=== PATIENT | female | born 1930 | race Caucasian/White ===

== ENCOUNTER → 2018-08-31 | Outpatient (CLI) | payer MEDICARE ==
[2018-08-31 16:48] LABS: HEMOGLOBIN 12.3 g/dL (12.0-15.0); MEAN CELL HGB CONCENTRATION 31.9 g/dL (33-37); MEAN CORP VOLUME 97.2 fL (78-100); MEAN PLATELET VOLUME 9.8 fL (7.8-11.0); RED CELL DISTRIBUTION WIDTH 14.5 % (11.5-14.5); WHITE BLOOD CELL 9.4 10^3/uL (4.5-11.0)
[2018-08-31 16:55] LABS: CALCIUM 10.4 mg/dL (8.4-10.5); CARBON DIOXIDE 26.2 mmol/L (20.0-32)
== END | disposition home or self-care (01) ==
LOC: LAB 16:24
PROVIDERS: ATTEND Family Medicine
DX: N39.0 Urinary tract infection, site not specified (principal)
CPT/HCPCS: 80053; 85027

== ENCOUNTER 2018-11-22 08:15 | Inpatient (IN) | payer MEDICARE ==
[2018-11-22] VITALS (13 sets, daily range): BP systolic 98–158; BP diastolic 44–119
[~2018-11-22] VITALS: Ht 167.6 cm; Wt 79.5 kg
--- NOTE | 2018-11-22 08:15 | NUR ---
ARRIVAL PATIENT ARRIVED TO ED3 VIA GURNEY BY [facility]PLING EMS, EMS CALLED TO [facility], PATIENT STATES SHE WAS GETTING UP TO USE THE RESTROOM AT APPROX 0300, SHE WAS USING THE BEDSIDE TABLE TO WALK ACROSS THE ROOM, HER WATER FELL ON THE FLOOR AND PATIENT SLIPPED IN THE WATER LANDED ON THE FLOOR, ROTATION NOTED TO RIGHT EXTREMITIY, RAISED AREA TO THE BACK OF THE HEAD, DENIES LOC, HERE FOR XRAY AND FURTHER EVAL BY EDP.
--- NOTE | 2018-11-22 08:37 | ER.PDOC ---
General Chief Complaint: Requesting Medical Care Stated Complaint: FALL Time seen by MD: 08:33 Source: patient Exam Limitations: no limitations History of Present Illness Where: long term Severity: moderate Injuries/Pain Location: lower extremity Context: Slipped Loss of Consciousness: No Loss of Consciousness Modifying Factors: improves with movement, improves with rest Allergies: Coded Allergies: No Known Allergies (Unverified , 11/22/18) MEDS Reported Medications Gabapentin (GABAPENTIN) 300 Mg Capsule, 1 CAP PO TID, #90 CAP 3 Refills 11/22/18 Potassium Chloride (POTASSIUM CHLORIDE) 20 Meq Tab.er.prt, 1 TAB PO BID, #180 TAB 3 Refills 11/22/18 Metoprolol Tartrate 25MG (LOPRESSER 25MG) 25 Mg Tablet, 1 TAB PO BID, #180 TAB 3 Refills 11/22/18 Metformin Hcl (METFORMIN HCL) 1,000 Mg Tablet, 1 TAB PO BID, #180 TAB 1 Refill 11/22/18 Docusate Sodium (DOCUSATE SODIUM) 100 Mg Capsule, 1 CAP PO BID, #14 CAP 11/22/18 Rivaroxaban (XARELTO) 20 Mg Tablet, 1 TAB PO DAILY, #90 TAB 3 Refills 11/22/18 Vit A,C & E/Lutein/Minerals (OCUVITE TABLET) 1 Each Tablet, 1 EACH PO DAILY24, TABLET 11/22/18 Levothyroxine Sodium (LEVOTHYROXINE SODIUM) 112 Mcg Tablet, 1 TAB PO DAILY, #90 TAB 3 Refills 11/22/18 Hydrochlorothiazide (HYDROCHLOROTHIAZIDE) 25 Mg Tablet, 1 TAB PO DAILY, #90 TAB 3 Refills 11/22/18 [place]-3 Fatty Acids/Fish Oil (FISH OIL 1,000 MG CAPSULE) 1 Each Capsule, 1 EACH PO DAILY24, CAPSULE 11/22/18 Aspirin (ASPIR 81) 81 Mg Tablet.dr, 1 TAB PO DAILY, #90 TAB 3 Refills 11/22/18 Zolpidem Tartrate (AMBIEN) 5 Mg Tablet, 1 TAB PO HS, #30 TAB 11/22/18 Tramadol Hcl (TRAMADOL HCL) 50 Mg Tablet, 100 MG PO Q8, TABLET 11/22/18 Past Medical History Medical History: no pertinent history LMP (females 10-50): postmenopause Social History Smoking: non-smoker Reviewed Nursing Reviewed: Vital Signs, Abn. Noted Review of Systems All Other Systems: Reviewed and Negative Physical Exam General Appearance: No Apparent Distress, WD/WN Head: No Evidence of Injury Eyes: bilateral eye normal inspection Ears, Nose, Mouth, Throat: Hearing Grossly Normal, No Evidence of ENT Injury, No Dental Injury Neck: Non-Tender, Normal Alignment, Nexus criteria neg, Normal Inspection Cardiovascular/Respiratory: Regular Rate, Rhythm, No M/R/G, Normal Peripheral Pulses, No JVD, Normal Breath Sounds, No Respiratory Distress Gastrointestinal: Normal Bowel Sounds, No Organomegaly, No Pulsatile Mass, Non Tender, Soft Back: Normal Inspection, No CVA Tenderness, No Vertebral Tenderness Extremities: Bony-Point Tenderness, Pain With Movement, Tenderness, Unable to Bear Weight 1 - tenderness Neurologic/Psychiatric: 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 (11/22/18 08:31) Helicobacter Pylori (11/22/18 08:31) D-Dimer (11/22/18 08:31) Ekg-Routine (11/22/18 08:31) Ct Head Wo Contrast (11/22/18 08:34) Urinalysis (11/22/18 08:55) Ct Rt Lower Extremity Wo (11/22/18 09:06) Ondansetron Hcl (Zofran) (11/22/18 09:11) Morphine Sulfate (Morphine Sulfate) (11/22/18 09:14) Ondansetron Hcl (Zofran) (11/22/18 09:14) 0.9 % Sodium Chloride (Ns 1000ml) (11/22/18 09:30) 0.9 % Sodium Chloride (Ns 1000ml) (11/22/18 09:46) Urine Culture (11/22/18 10:00) Ceftriaxone Sodium (Rocephin) (11/22/18 11:00) Vital Signs Date Time Temp Pulse Resp B/P (MAP) Pulse Ox O2 Delivery O2 Flow Rate FiO2 11/22/18 09:00 97.9 92 12 143/119 (127) 92 Room Air 97.9 11/22/18 08:56 12 11/22/18 08:37 97.9 92 12 92 Room Air 97.9 11/22/18 08:36 97.9 92 12 97.9 Administered Medications Medications (Trade) Dose Ordered Sig/April Route PRN Reason Start Time Stop Time Status Last Admin Dose Admin Morphine Sulfate (Morphine Sulfate) 2 mg STAT STAT IV 11/22/18 09:14 11/22/18 09:15 DC 11/22/18 09:18 2 MG Ondansetron HCl (Zofran) 4 mg STAT STAT IV 11/22/18 09:14 11/22/18 09:15 DC 11/22/18 09:18 4 MG Sodium Chloride 1,000 ml @ 0 mls/hr Q0M ONCE IV 11/22/18 09:30 11/22/18 09:31 DC 11/22/18 09:58 1,200 MLS/HR Laboratory Tests Test 11/22/18 08:34 11/22/18 10:00 White Blood Count 14.0 10^3/uL (4.5-11.0) H Red Blood Count 4.29 10^6/uL (4.00-5.20) Hemoglobin 12.7 g/dL (12.0-15.0) Hematocrit 38.6 % (36.0-46.0) Mean Corpuscular Volume 90.0 fL (78-100) Mean Corpuscular Hemoglobin 29.6 pg (26-34) Mean Corpuscular Hemoglobin Concent 32.9 g/dL (33-37) L Red Cell Distribution Width 14.8 % (11.5-14.5) H Platelet Count 333 10^3/uL (150-400) Mean Platelet Volume 8.7 fL (7.8-11.0) Neutrophils (%) (Auto) 73.2 % (41.0-85.0) Lymphocytes (%) (Auto) 17.4 % (24.0-44.0) L Monocytes (%) (Auto) 5.8 % (5.0-12.0) Neutrophils # (Auto) 10.2 10^3/uL (1.8-7.7) H Lymphocytes # (Auto) 2.4 10^3/uL (1.0-4.8) Monocytes # (Auto) 0.8 10^3/uL (0.3-0.8) Absolute Immature Granulocyte (auto 0.05 10^3 u/L (0-2) Eosinophils % 2.9 % (0.0-5.0) Basophils % 0.3 % (0.0-0.2) H Basophils # 0.0 10^3/uL (0.0-0.1) Eosinophil Count 0.4 10^3/uL (0.0-0.2) H Prothrombin Time 10.1 SEC (9.8-11.9) Prothrombin Time INR (Non-Therap) 1.0 PTT 26.8 SEC (24.67-30.72) D-Dimer 30.85 mg/L (0.19-0.49) *H Sodium Level 138 mmol/L (132-145) Potassium Level 3.7 mmol/L (3.6-5.2) Chloride Level 96.0 mmol/L (96-109) Carbon Dioxide Level 31.1 mmol/L (20.0-32) Anion Gap 14.6 Blood Urea Nitrogen 17 mg/dL (7-18) Creatinine 0.72 mg/dL (0.59-1.40) Estimated GFR () 92.9 (>/=60) BUN/Creatinine Ratio 23.0 Glucose Level 103 mg/dL (70-110) Calcium Level 10.4 mg/dL (8.4-10.5) Total Bilirubin 0.4 mg/dL (0.2-1.0) Aspartate Amino Transferase (AST) 19 U/L (0-35) Alanine Aminotransferase (ALT) 17 U/L (12-78) Alkaline Phosphatase 76 U/L (50-136) Total Creatine Kinase 44 U/L (26-192) Troponin I < 0.02 ng/mL (0.00-0.05) Pro-B-Type Natriuretic Peptide 95 pg/mL (0-450) Total Protein 7.1 g/dL (6.4-8.2) Albumin 3.4 g/dL (3.4-5.0) Globulin 3.7 Percent Immature Gran (Cell Imm) 0.40 % (0.00-0.50) Helicobacter pylori Screen POSITIVE (NEGATIVE) Urine Collection Type VOID Urine Color YELLOW (YELLOW) Urine Appearance CLOUDY (CLEAR) H Urine Bilirubin NEGATIVE MG/DL (NEGATIVE) Urine Ketones 5 mg/dL (NEGATIVE) H Urine Specific Dequincy 1.010 (1.005-1.035) Urine pH 9 (5.0-6.0) Urine Protein NEGATIVE (NEGATIVE) Urine Urobilinogen NORMAL (NEGATIVE) Urine Nitrate POSITIVE (NEGATIVE) Urine Leukocyte Esterase 500/uL 2+ (NEGATIVE) Urine Blood 25 1+ (NEGATIVE) H Urine RBC 2-5 RBC/HPF (NONE SEEN) Urine WBC TNTC WBC/HPF (0-2) H Urine Squamous Epithelial Cells MANY #/HPF (FEW) Urine Bacteria MANY (NONE SEEN) H Urine Glucose NORMAL (NEGATIVE) Departure Time of Disposition: 11:11 Disposition: 09 ADMITTED INPATIENT Impression: Primary Impression: Fracture, hip Additional Impression: UTI (urinary tract infection) Condition: Improved Referrals: CRISTOFER CRUZ (PCP) PRIMARY CARE PROVIDER Duration or Time Spent with Pa: 2 hrs LOUIS CASAS MD November 22, 2018 08:37
[2018-11-22 08:39] LABS: BASOPHIL % 0.3 % (0.0-0.2); EOSINOPHIL # 0.4 10^3/uL (0.0-0.2); EOSINOPHIL % 2.9 % (0.0-5.0); HEMOGLOBIN 12.7 g/dL (12.0-15.0); LYMPHOCYTES # 2.4 10^3/uL (1.0-4.8); LYMPHOCYTES % 17.4 % (24.0-44.0); MEAN CELL HGB 29.6 pg (26-34); MEAN CELL HGB CONCENTRATION 32.9 g/dL (33-37); MEAN PLATELET VOLUME 8.7 fL (7.8-11.0); MONOCYTES # 0.8 10^3/uL (0.3-0.8); MONOCYTES % 5.8 % (5.0-12.0); NEUTROPHIL # 10.2 10^3/uL (1.8-7.7); NEUTROPHILS % 73.2 % (41.0-85.0); RED CELL DISTRIBUTION WIDTH 14.8 % (11.5-14.5)
--- NOTE | 2018-11-22 08:45 | NUR ---
xray XRAY TO ROOM
[2018-11-22 09:03] LABS: ALANINE AMINOTRANSFERASE(ML) 17 U/L (12-78); ALKALINE PHOSPHATASE 76 U/L (50-136); ASPARTATE AMINO TRANSFERASE 19 U/L (0-35); CALCIUM 10.4 mg/dL (8.4-10.5); CARBON DIOXIDE 31.1 mmol/L (20.0-32); GLUCOSE 103 mg/dL (70-110)
[2018-11-22] MEDS ORDERED: GABA300C10 PO (09:10)
[2018-11-22] MEDS ORDERED: LEVO112T5 PO (09:10)
[2018-11-22] MEDS ORDERED: ASPI-484 PO (09:10)
[2018-11-22] MEDS ORDERED: TRAM50TA PO (09:10)
[2018-11-22] MEDS ORDERED: RIVA20TA PO (09:10)
[2018-11-22] MEDS ORDERED: DOCU100C28 PO (09:10)
[2018-11-22] MEDS ORDERED: METO25TA4 PO (09:10)
[2018-11-22] MEDS ORDERED: HYDR25TA9 PO (09:10)
[2018-11-22] MEDS ORDERED: METF10007 PO (09:10)
[2018-11-22] MEDS ORDERED: POTA20TA14 PO (09:10)
[2018-11-22] MEDS ORDERED: VIT1TABL32 PO (09:10)
[2018-11-22] MEDS ORDERED: ZOLP5TAB PO (09:10)
[2018-11-22] MEDS ORDERED: OMEG1CAP6 PO (09:10)
[2018-11-22] MEDS ORDERED: ZOFRAN ONE (09:11)
[2018-11-22] MEDS ORDERED: MORPHINE SULFATE IV STA (09:14)
[2018-11-22] MEDS ORDERED: ZOFRAN IV STA (09:14)
--- NOTE | 2018-11-22 09:19 | NUR ---
CRITICAL LAB D-DIMER 30.2, REPORTED TO DOCTOR CASAS.
--- NOTE | 2018-11-22 09:19 | DIREP ---
PROCEDURE:XRAY FEMUR 2 VWS-RT COMPARISON:None. INDICATIONS:fall, mid thigh pain FINDINGS: BONES:No acute fracture or bone displacement. There is osteopenia in the proximal femoral shaft and intratrochanteric region. JOINTS:Right total hip arthroplasty in satisfactory alignment. The knee joint demonstrates no subluxation or dislocation. Mild narrowing and marginal osteophyte formation at the patellofemoral joint. SOFT TISSUES:Normal. OTHER:Partially visualized distal left femoral hardware and left knee arthroplasty. Surgical clips in the medial aspect of the right thigh. CONCLUSION: 1. No evidence of acute bony injury to the right femur. 2. Osteopenia in the proximal right femur is of uncertain clinical significance. Recommend clinical correlation as to whether there is chronic symptomatology in this region. 3. Please see the above discussion for details of other findings. Dictated by: Hiro Davalos M.D. on 11/22/2018 at 09:16 AM
--- NOTE | 2018-11-22 09:20 | PCM.EKG ---
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
--- NOTE | 2018-11-22 09:23 | NUR ---
CT PATIENT TO CT.
[2018-11-22] MEDS ORDERED: NS 1000ML 1,000 ML IV ONE (09:30)
--- NOTE | 2018-11-22 09:43 | NUR ---
CAT SCAN PATIENT BACK FROM CT.
[2018-11-22] MEDS ORDERED: NS 1000ML 1,000 ML ONE (09:46)
--- NOTE | 2018-11-22 09:53 | DIREP ---
PROCEDURE:CT LOWER EXTREMITY-RT W/O COMPARISON:[facility], CR, XRAY FEMUR 2 VWS-RT, 11/22/2018, 08:38 AM. INDICATIONS:fall, l trochateric area pain, tenderness TECHNIQUE:Axial sections through the right hip joint were performed with sagittal and coronal reconstructions from source images. No contrast was administered. FINDINGS: Periprosthetic fracture about the greater trochanter of the right hip arthroplasty. Mild diffuse muscle atrophy. Moderate fatty atrophy of the gluteus muscles. No visualized soft tissue abnormality. Limited evaluation the joint space due to beam hardening and scatter artifact. Injection granulomas within the soft tissues of the right gluteus region. CONCLUSION:Acute periprosthetic fracture without significant displacement through the greater trochanter. Dictated by: Rich Rock DO on 11/22/2018 at 09:48 AM
--- NOTE | 2018-11-22 09:54 | DIREP ---
PROCEDURE:CT HEAD OR BRAIN W/O CONTRAST COMPARISON:[facility], CT, CT HEAD BRAIN W/O CONTRAST, 07/16/2018, 01:49 PM. INDICATIONS:fall, scalp hematoma TECHNIQUE:CT images were created without intravenous contrast. FINDINGS: VENTRICLES:Generalized prominence is again seen of the ventricles and sulci consistent with patient's age. 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 Mild decreased attenuation is seen in the periventricular white matter bilaterally. CEREBELLUM:Negative. BRAINSTEM:Negative. BASAL CISTERNS:Negative. HEMORRHAGE:No MASS LESION:No ACUTE INFARCT:No SKULL:Normal. SINUSES:Normal. 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 No fracture or hemorrhage is seen. Dictated by: Jonn Liao M.D. on 11/22/2018 at 09:48 AM
--- NOTE | 2018-11-22 09:58 | NUR ---
DR. EDWARDS EDP ON THE PHONE WITH DR. EDWARDS.
--- NOTE | 2018-11-22 10:01 | NUR ---
OSEI CASAS ON THE PHONE WITH DOCTOR FRANZ AT THIS TIME.
[2018-11-22 10:14] LABS: BILIRUBIN,URINE NEGATIVE (NEGATIVE); UROBILINOGEN,URINE NORMAL (NEGATIVE)
--- NOTE | 2018-11-22 10:30 | NUR ---
STATUS PATIENT RESTING IN SUPINE POSITION, FAMILY AT BEDSIDE, DENIES NEEDS AT THIS TIME.
[2018-11-22 10:33] LABS: APPEARANCE,URINE CLOUDY (CLEAR); UA COLOR YELLOW (YELLOW)
[2018-11-22] MEDS ORDERED: ROCEPHIN ONE (10:44)
[2018-11-22] MEDS ORDERED: NS 100ML 100 ML IV ONE (10:44)
[2018-11-22] MEDS: ROCEPHIN 1,000 MG in NS 100ML 100 ML IV SCH ×2 (10:58→11:11)
--- NOTE | 2018-11-22 11:02 | NUR ---
STATUS AWAITING DOCTOR OSEI TO COME SEE PATIENT.
--- NOTE | 2018-11-22 11:31 | NUR ---
STATUS ROOM ASSIGNMENT GIVEN BY MARV CAN, WILL HOLD PATIENT IN ED UNTIL [facility] [employer] [facility] STAFF HAS ARRIVED.
--- NOTE | 2018-11-22 11:35 | NUR ---
CONTACTS ESTEFANY Brannon [phone] CALL 2ND GUY SALAZAR [phone] CALL 1ST
--- NOTE | 2018-11-22 11:57 | HPH ---
ADMIT DATE: 11/22/2018 CHIEF COMPLAINT: Painful right hip. HISTORY OF PRESENT ILLNESS: The patient is an 88-year-old female with pain about the right hip. [facility]. It is my understanding that the patient is a minimal household ambulator with a walker. Basically, she just ambulates with a walker with the physical therapist. Her ambulatory status has been that way for about 6 months because of generalized weakness. The patient [facility] the jail when she slipped on a wet floor. It is my understanding when she got out of bed by herself and injured the right hip. She has had previous right total hip arthroplasty many years ago. PAST MEDICAL HISTORY: The patient's medical history includes hypertension, diabetes, coronary artery disease, dementia, hypothyroidism. ALLERGIES: The patient has no known drug allergies. PREVIOUS SURGICAL PROCEDURES: Include right total hip arthroplasty as well as left knee replacement. She has also had a coronary artery bypass graft many years ago. MEDICATIONS: Include Ambien 5 mg at bedtime, aspirin 81 mg once a day, hydrochlorothiazide 25 mg once a day, levothyroxine 125 mcg once a day, Xarelto 20 mg once a day, Colace 100 mg once a day, metformin 1000 mg twice a day, metoprolol 25 mg twice a day, potassium ER 20 mEq twice a day, Flexeril 10 mg q. 8 hours p.r.n. muscle spasms, gabapentin 300 mg 3 times a day, Tylenol No. 3 one q. 6 hours p.r.n. pain. SOCIAL HISTORY: The patient lives at the [facility]. She does not smoke or drink. FAMILY HISTORY: Unknown. PHYSICAL EXAMINATION: GENERAL: Shows an 88-year-old female in no acute distress. HEENT: Within normal limits for her age. CHEST: Clear to auscultation bilaterally. HEART: Regular rate and rhythm, no murmur. ABDOMEN: Soft, nontender, mildly obese. EXTREMITIES: The patient's right hip is tender to palpation. There is pain with any attempts of range of motion about the right hip. She has a posterior scar. The patient has no areas of tenderness about her upper extremities or her left lower extremity. NEUROLOGIC: The patient is able to follow commands, but is disoriented to person, place and time. IMAGING STUDIES: The patient's x-rays show a nondisplaced periprosthetic greater trochanteric fracture about the right hip, about an old total hip arthroplasty. There are no signs of loosening about the hip, either proximally or distally. ASSESSMENT: Nondisplaced greater trochanteric periprosthetic fracture, right hip. Other diagnoses include dementia, hypertension, diabetes, coronary artery disease, hypothyroidism. PLAN: The patient is being admitted for pain control and physical therapy. The fracture is nondisplaced, so I would not advocate surgery at this point. She will be admitted for pain control and physical therapy. Donovan Carrillo MD DR: LIGIA/nena JOB# [id number]
[2018-11-22] MEDS ORDERED: LACTATED RINGERS 1,000 ML IV SCH (12:00)
[2018-11-22] MEDS ORDERED: ULTRAM PO PRN ×4 (12:00→19:00)
[2018-11-22] MEDS ORDERED: MORPHINE SULFATE IV PRN (12:00)
--- NOTE | 2018-11-22 12:00 | NUR ---
UPDATE PATIENT IN ROOM RESTING, FAMILY AT BEDSIDE.
--- NOTE | 2018-11-22 12:30 | NUR ---
UPDATE PATIENT IN ROOM RESTING, NO NEEDS AT THIS TIME.
--- NOTE | 2018-11-22 13:00 | NUR ---
UPDATE PATIENT IN ROOM, RESTING WITH PATIENT.
--- NOTE | 2018-11-22 13:30 | NUR ---
UPDATED PATIENT RESTING IN ROOM 3 WITH FAMILY. PAMI BOX RN PREPARING TO TAKE PATIENT TO [facility].
--- NOTE | 2018-11-22 13:56 | NUR ---
I&O INTAKE- 1000ML NORMAL SALINE OUTPUT- 600ML YELLOW URINE
[2018-11-22] MEDS ORDERED: METO50TA6 PO (15:59)
[2018-11-22] MEDS: OCUVITE WITH LUTEIN PO SCH (19:00)
--- NOTE | 2018-11-22 19:29 | NUR ---
DR. EDWARDS IN ROOM WITH PT.
[2018-11-22] MEDS: TORADOL IV PRN (19:34)
--- NOTE | 2018-11-22 19:38 | PRM.CONS ---
Consultation Reason for Consult: Reason for Consultation: Medical Management of DM, HTN, Hypothyroidism, CAD, UTI History of Present Illness History of Patient Comments Patient is a 88 F PMH of DM, HTN, Hypothyroidism, CAD, who presents with mechanical fall @ her SNF with right hip injury. Patient has hx Total Right Hip Arthroplasty. Patient has periprostetic fx. Patient has been seen by Orthopedic Surgery and not recommending surgery for correction. Patient pain is controlled. Labs, imaging reviewed. Patient does have UTI. Her medication hx, surgical hx, PMH reviewed and discussed with patient. Patient is comfortable and sitting in chair during my evaluation. Surgery has consulted me for medical management of comorbidities. Past Medical History 1. CAD s/p CABG 2. HTN 3. Hypothyroidism 4. DM 5. Osteoarthritis Past Surgical History 1. CABG 2. Right Total Hip Arthroplasty 3. Left TKA 4. Hysterectomy 5. Appendectomy 6. Tonsillectomy Social History: , lives @ SNF. Former smoker and former occasional alcohol consumption. No current alcohol, tobacco, or drug use. Family History: noncontributory Review of Systems Constitutional: No: Fever, Chills Eyes: No: Conjunctivae inflammation, Eyelid inflammation ENT: No: Nose discharge, Nose congestion Respiratory: No: Cough, Shortness of breath, SOB with excertion, Wheezing Cardiovascular: No: Chest Pain, Palpitations, Edema Gastrointestinal: No: Nausea, Vomiting, Abdominal Pain Genitourinary: No Hematuria, No Retention Musculoskeletal: No: neck pain, back pain Skin: No: Rash, Lesions, Jaundice, Bruising Neurological: Weakness; No: Numbness, Incoordination, Change in speech, Confusion, Seizures Allergies: Coded Allergies: No Known Allergies (Unverified , 11/22/18) Scheduled Aspirin (Aspir 81), 1 TAB PO DAILY, (Reported) Docusate Sodium (Docusate Sodium), 1 CAP PO BID, (Reported) Hydrochlorothiazide (Hydrochlorothiazide), 1 TAB PO DAILY, (Reported) Levothyroxine Sodium (Levothyroxine Sodium), 1 TAB PO DAILY, (Reported) Metformin Hcl (Metformin Hcl), 1 TAB PO BID, (Reported) Metoprolol Tartrate 50MG (Lopresser 50MG), 50 MG PO BID, (Reported) [place]-3 Fatty Acids/Fish Oil (Fish Oil 1,000 Mg Capsule), 1 EACH PO DAILY24, (Reported) Potassium Chloride (Potassium Chloride), 1 TAB PO BID, (Reported) Rivaroxaban (Xarelto), 1 TAB PO DAILY, (Reported) Tramadol Hcl (Tramadol Hcl), 100 MG PO Q8, (Reported) Vit A,C & E/Lutein/Minerals (Ocuvite Tablet), 1 EACH PO DAILY24, (Reported) Zolpidem Tartrate (Ambien), 1 TAB PO HS, (Reported) Discontinued Medications Gabapentin (Gabapentin), 1 CAP PO TID, (Reported) Discontinued Reason: No Longer Taking Metoprolol Tartrate 25MG (Lopresser 25MG), 1 TAB PO BID, (Reported) Discontinued Reason: Discontinue VTE VTE Risk Total Score: >5 VTE Risk Score VTE Risk: Score 0-1 = Low Risk (Aggressive mobilization; early ambulation; no VTE prophylaxis required) Score 2: Moderate Risk (Intermittent/Pneumatic Compression Device OR Lovenox/Heparin/Coumadin) Score 3-4: High Risk (Intermittent/Pneumatic Compression Device AND Lovenox/Heparin/Coumadin) Score > or =5: Highest Risk (Intermittent/Pneumatic Compression Device AND Lovenox/Heparin/Coumadin) Assessment/Plan Assessment/Plan Assessment/Plan Patient is a 88 F PMH of DM, HTN, Hypothyroidism, CAD, who presents with mechanical fall @ her SNF with right hip injury. Patient History: Patient reports no known family medical history. Plan 1. Right Periprosthetic Hip Fx: Ortho managing. Likely conservative treatment with pain control, PT. 2. HTN: cont HCTZ, BB 3. DM: cont Metformin 4. CAD: cont ASA, no Statin for outpatient management. Will not add currently 5. Hypothyroidism: cont Synthroid 6. UTI: cont IV abx, pending urine cx. 7. PPx: PepVance gudino MICAH R MD November 22, 2018 19:38
[2018-11-22] MEDS: MORPHINE SULFATE IV PRN (20:33)
[2018-11-22] MEDS: KLOR-CON 10 PO SCH (20:33)
[2018-11-22] MEDS: GLUCOPHAGE PO SCH (20:34)
[2018-11-22] MEDS: COLACE PO SCH (20:35)
[2018-11-22] MEDS: PEPCID PO SCH (20:35)
[2018-11-22] MEDS: LOVAZA PO SCH (20:36)
[2018-11-22] MEDS: LOPRESSOR PO SCH (20:36)
[2018-11-22] MEDS: AMBIEN PO SCH (20:36)
[2018-11-22] MEDS: ULTRAM PO SCH (23:09)
[2018-11-23 00:19] VITALS: BP 97/59
[2018-11-23] MEDS: TORADOL IV PRN (02:34)
[2018-11-23 04:45] VITALS: BP 92/46
[2018-11-23 05:38] LABS: BASOPHIL % 0.1 % (0.0-0.2); EOSINOPHIL # 0.4 10^3/uL (0.0-0.2); EOSINOPHIL % 5.7 % (0.0-5.0); HEMOGLOBIN 10.5 g/dL (12.0-15.0); LYMPHOCYTES % 27.5 % (24.0-44.0); MEAN CELL HGB 29.4 pg (26-34); MEAN CELL HGB CONCENTRATION 32.1 g/dL (33-37); MEAN CORP VOLUME 91.6 fL (78-100); MONOCYTES # 0.8 10^3/uL (0.3-0.8); MONOCYTES % 10.7 % (5.0-12.0); NEUTROPHILS % 55.7 % (41.0-85.0); RED CELL DISTRIBUTION WIDTH 14.9 % (11.5-14.5); WHITE BLOOD CELL 7.2 10^3/uL (4.5-11.0)
[2018-11-23] MEDS: ULTRAM PO SCH ×3 (06:00→21:43)
[2018-11-23 06:01] LABS: CALCIUM 9.4 mg/dL (8.4-10.5); CARBON DIOXIDE 31.4 mmol/L (20.0-32)
[2018-11-23] MEDS: SYNTHROID PO SCH (06:25)
--- NOTE | 2018-11-23 06:57 | NUR ---
REPORT RECEIVED REPORT FROM CLEMENTINA CAN. ASSUMED PT CARE AT THIS TIME.
--- NOTE | 2018-11-23 07:10 | NUR ---
REPORT RECEIVED REPORT FROM GHANSHYAM CAN. ASSUMED CARE OF PT AT THIS TIME
[2018-11-23 07:54] VITALS: BP 113/54
[2018-11-23] MEDS ORDERED: HYDROCHLOROTHIAZIDE PO SCH (09:00)
[2018-11-23] MEDS: PEPCID PO SCH ×2 (09:39→21:43)
[2018-11-23] MEDS: XARELTO PO SCH (09:41)
[2018-11-23] MEDS: KLOR-CON 10 PO SCH ×3 (09:42→21:43)
[2018-11-23] MEDS: COLACE PO SCH ×2 (09:43→21:44)
[2018-11-23] MEDS: GLUCOPHAGE PO SCH ×2 (09:43→21:00)
[2018-11-23] MEDS: LOPRESSOR PO SCH ×2 (09:43→21:44)
[2018-11-23] MEDS: ASPIRIN EC PO SCH (09:43)
[2018-11-23] MEDS: MORPHINE SULFATE IV PRN (10:51)
--- NOTE | 2018-11-23 11:20 | NUR ---
DISCHARGE PLAN CM VISITED WITH PATIENT AND DAUGHTER MILLY REGARDING D/C PLAN. PATIENT IS CURRENTLY A LTC RESIDENT AT [facility] [place]. SHE DOES USE A W/C THERE AND A WALKER VERY RARELY. HER DAUGHTER STATED THAT HER MPA IS YUSUF RAMOS HER OTHER DAUGHTER. GUY STATED THAT THE D/C GOAL IS FOR HER MOM TO GO BACK TO [facility] [place] AND RECEIVE HALF-WAY AND THERAPY THERE. NO FURTHER NEEDS NOTED AT THIS TIME. [facility] WILL TRANSPORT PATIENT ON D/C. CALL REPORT TO [phone].
--- NOTE | 2018-11-23 11:30 | DIET.OP ---
Nutrition Asmt/Malnutrit 2-17 Actual Date of Review: November 23, 2018 Nutritional Screening: Malnutr/Diet Consult Diagnosis: Painful Right Hip Pertinent Medical Hx/Surgical: Per MD: The patient's medical history includes hypertension, diabetes, coronary artery disease, dementia, hypothyroidism. Subjective Information: Consulted for Diabetic Notification. Spoke with the patient who reported that she has a good appetite. She does not follow a particular diet for her DM. She personally does not check her sugars. She lives in a long term and they are checked there. Not sure owhat her blood sugars run at the long term. Her daughter and daughters walked half way through the consult and said since she has been on Metformin hr sugars have run between 70-135 mg/dL. The UBW the patient reported was 145 pounds. The daughter says the patient eats very small portions at meal time. Patient's hx of dementia made it diffulcty to get accurate answers to questions. Current Diet Order/Nutrition S: 1800 ADA Pertinent Meds Current Medications Medications (Trade) Dose Ordered Sig/April PRN Reason Start Time Stop Time Status Last Admin Aspirin (Aspirin Ec) 81 mg DAILY 11/23/18 09:00 12/23/18 08:59 11/23/18 09:43 Ceftriaxone Sodium 1000 mg/ Sodium Chloride 100 ml @ 100 mls/hr Q24HRS 11/22/18 11:00 12/22/18 10:59 11/22/18 11:11 Docusate Sodium (Colace) 100 mg BID 11/22/18 21:00 12/22/18 20:59 11/23/18 09:43 Famotidine (Pepcid) 20 mg BID 11/22/18 21:00 12/22/18 20:59 11/23/18 09:39 Hydrochlorothiazide (Hydrochlorothiazide) 25 mg DAILY 11/23/18 09:00 12/23/18 08:59 11/23/18 09:41 Ketorolac Tromethamine (Toradol) 15 mg Q6H PRN PAIN 11/22/18 19:00 11/27/18 18:59 11/23/18 02:34 Levothyroxine Sodium (Synthroid) 112 mcg ACB 11/23/18 06:30 12/23/18 06:29 11/23/18 06:25 Metformin HCl (Glucophage) 1,000 mg BID 11/22/18 21:00 12/22/18 20:59 11/23/18 09:43 Metoprolol Tartrate (Lopressor) 50 mg BID 11/22/18 21:00 12/22/18 20:59 11/23/18 09:43 Morphine Sulfate (Morphine Sulfate) 4 mg Q6HR PRN PAIN 4 - 6 11/22/18 19:00 12/22/18 18:59 11/23/18 10:51 Qkjme-7-Ilmb Ethyl Esters (Lovaza) 1 gm DAILY24 11/22/18 19:00 12/22/18 18:59 11/22/18 20:36 Potassium Chloride (Klor-Con 10) 20 meq BID 11/22/18 21:00 12/22/18 20:59 11/23/18 09:42 Rivaroxaban (Xarelto) 20 mg DAILY 11/23/18 09:00 12/23/18 08:59 11/23/18 09:41 Tramadol HCl (Ultram) 50 mg Q4HR PRN MILD PAIN 11/22/18 19:00 12/22/18 11:59 Tramadol HCl (Ultram) 100 mg Q4HR PRN SEVERE PAIN 11/22/18 19:00 12/22/18 11:59 Tramadol HCl (Ultram) 100 mg Q8 11/22/18 22:00 12/22/18 21:59 11/23/18 09:48 Zolpidem Tartrate (Ambien) 5 mg HS 11/22/18 21:00 12/22/18 20:59 11/22/18 20:36 Pertinent Labs Laboratory Tests 11/23/18 05:19: White Blood Count 7.2, Red Blood Count 3.57L, Hemoglobin 10.5L, Hematocrit 32.7L , Mean Corpuscular Volume 91.6, Mean Corpuscular Hemoglobin 29.4, Mean Corpuscular Hemoglobin Concent 32.1L, Red Cell Distribution Width 14.9H, Platelet Count 254, Mean Platelet Volume 9.0, Neutrophils (%) (Auto) 55.7, Lymphocytes (%) (Auto) 27.5, Monocytes (%) (Auto) 10.7, Neutrophils # (Auto) 4.0, Lymphocytes # (Auto) 2.0, Monocytes # (Auto) 0.8, Absolute Immature Granulocyte (auto 0.02, Eosinophils % 5.7H, Basophils % 0.1, Basophils # 0.0, Eosinophil Count 0.4H, Sodium Level 137, Potassium Level 4.5, Chloride Level 101.0, Carbon Dioxide Level 31.4, Anion Gap 9.1, Blood Urea Nitrogen 15, Creatinine 0.86, Estimated GFR () 75.7, BUN/Creatinine Ratio 17.0, Glucose Level 82, Calcium Level 9.4, Total Bilirubin 0.2, Aspartate Amino Transf (AST/SGOT) 14, Alanine Aminotransferase (ALT/SGPT) 12, Alkaline Phosphatase 61, Total Protein 5.9L, Albumin 2.6L, Globulin 3.3, Percent Immature Gran (Cell Imm) 0.30 Height (Feet): 5 Height (Inches): 6 Current Weight: 175 Usual Weight: 145 %UBW: 121 %IBW: 135 Weight Status: Appropriate (For age) GI Symptoms: None Food Allergies: No Cultural/Ethnic/Anabaptism Maryanne: None reported Usual Diet at Home: Regular Current %PO: Good(75-100%) BEE in Kcals: Use Current Weight Calories/Kcals/Kg: MsJ * 1.2-1.3 Kcals Calculated: 9695-4017 Protein: Use Current Weight Protein g/k-20% of 1600 ADA Protein Calculated: 60g-80g Fluid: ml: 4510-5969 or 1 mL/kcal Nutritional Problem: No Cur. Nutritional Probl Signs/Symptoms: Current blood glucose levels WNL, BMI appropriate for age, no po issues to report RD Comments: CHO needs: 45-55% of 1600 ADA or 180g-220g daily Intervention: 1. Recommend 1600 ADA diet with 45% of calories coming from CHO to meet estimated energy needs Monitor/evaluate: 1. Blood Glucose Levels 2. Weight Status 3. po intake Expected Outcomes Goal: 1. The patient will consume 100% of meals provided to meet 100% of estimated energy needs over the next 2-3 days Discharge plan: 1. Discharge planning in progress Malnutrtion/Nutrition Risk Edu: No At this time education was not appropriate due to the patients mental status. HORTENCIA GALLARDO RD November 23, 2018 11:30
[2018-11-23 12:20] VITALS: BP 121/62
--- NOTE | 2018-11-23 12:26 | PRM.PN ---
Subjective Subjective Date: November 23, 2018 Time: 12:15 Subjective Patient more delirious today. No other issues. Tolerating diet. Labs, imaging reviewed. Patient History: Patient reports no known family medical history. VTE VTE Risk Total Score: >5 VTE Risk Score VTE Risk: Score 0-1 = Low Risk (Aggressive mobilization; early ambulation; no VTE prophylaxis required) Score 2: Moderate Risk (Intermittent/Pneumatic Compression Device OR Lovenox/Heparin/Coumadin) Score 3-4: High Risk (Intermittent/Pneumatic Compression Device AND Lovenox/Heparin/Coumadin) Score > or =5: Highest Risk (Intermittent/Pneumatic Compression Device AND Lovenox/Heparin/Coumadin) Review of Systems Allergies: Coded Allergies: No Known Allergies (Unverified , 11/22/18) Scheduled Aspirin (Aspir 81), 1 TAB PO DAILY, (Reported) Docusate Sodium (Docusate Sodium), 1 CAP PO BID, (Reported) Hydrochlorothiazide (Hydrochlorothiazide), 1 TAB PO DAILY, (Reported) Levothyroxine Sodium (Levothyroxine Sodium), 1 TAB PO DAILY, (Reported) Metformin Hcl (Metformin Hcl), 1 TAB PO BID, (Reported) Metoprolol Tartrate 50MG (Lopresser 50MG), 50 MG PO BID, (Reported) [place]-3 Fatty Acids/Fish Oil (Fish Oil 1,000 Mg Capsule), 1 EACH PO DAILY24, (Reported) Potassium Chloride (Potassium Chloride), 1 TAB PO BID, (Reported) Rivaroxaban (Xarelto), 1 TAB PO DAILY, (Reported) Tramadol Hcl (Tramadol Hcl), 100 MG PO Q8, (Reported) Vit A,C & E/Lutein/Minerals (Ocuvite Tablet), 1 EACH PO DAILY24, (Reported) Zolpidem Tartrate (Ambien), 1 TAB PO HS, (Reported) Discontinued Medications Gabapentin (Gabapentin), 1 CAP PO TID, (Reported) Discontinued Reason: No Longer Taking Metoprolol Tartrate 25MG (Lopresser 25MG), 1 TAB PO BID, (Reported) Discontinued Reason: Discontinue Objective Vitals and I/O Vital Sign - Last 24 Hours 11/22/18 11/22/18 11/22/18 11/22/18 12:30 13:00 13:30 13:54 Temp 97.9 Pulse 89 91 91 91 Resp 18 18 18 18 B/P (MAP) 139/63 (88) 139/63 (88) 144/65 (91) Pulse Ox 97 99 97 99 O2 Delivery Room Air Room Air Room Air Room Air 11/22/18 11/22/18 11/22/18 11/22/18 14:36 19:25 23:26 23:29 Temp 98.0 98.0 Pulse 84 92 Resp 18 16 16 B/P (MAP) 111/49 (69) Pulse Ox 92 93 93 O2 Delivery Nasal Cannula Nasal Canula Nasal Cannula O2 Flow Rate 2.00 2.00 2.00 FiO2 28 11/23/18 11/23/18 11/23/18 11/23/18 00:19 00:24 04:45 07:54 Temp 97.8 97.5 97.9 97.8 97.5 97.9 Pulse 65 65 75 Resp 16 16 18 B/P (MAP) 97/59 (72) 92/46 (61) 113/54 (73) Pulse Ox 94 94 95 O2 Delivery Nasal Canula Nasal Cannula Nasal Canula Nasal Canula O2 Flow Rate 2.00 2.00 2.00 2.00 11/23/18 11/23/18 11/23/18 09:36 09:41 10:57 Pulse 75 Resp 18 B/P (MAP) 113/54 Pulse Ox 95 O2 Delivery Nasal Cannula Nasal Cannula O2 Flow Rate 2.00 2.00 FiO2 28 Intake and Output 11/22/18 11/22/18 11/23/18 15:00 23:00 07:00 Intake Total 1000 ml 300 ml Output Total 750 ml 425 ml Balance 250 ml -125 ml General: Alert, Cooperative, No acute distress HEENT: Atraumatic, PERRLA, EOMI Neck: Supple, No JVD Lungs: Clear to auscultation, Normal air movement Heart: Regular rate, Normal S1, Normal S2, No murmurs Abdomen: Normal bowel sounds, Soft, No tenderness Extremities: No clubbing, No cyanosis, Normal pulses Skin: No rashes, No breakdown, No significant lesion Neuro: Normal speech, Strength at 5/5 X4 ext, Normal tone, Sensation intact, Cranial nerves 3-12 NL Psych/Mental Status: Other (delirious, alert. ) All Results(Lab/Rad) Laboratory Tests Test 11/23/18 05:19 White Blood Count 7.2 10^3/uL Red Blood Count 3.57 10^6/uL Hemoglobin 10.5 g/dL Hematocrit 32.7 % Mean Corpuscular Volume 91.6 fL Mean Corpuscular Hemoglobin 29.4 pg Mean Corpuscular Hemoglobin Concent 32.1 g/dL Red Cell Distribution Width 14.9 % Platelet Count 254 10^3/uL Mean Platelet Volume 9.0 fL Neutrophils (%) (Auto) 55.7 % Lymphocytes (%) (Auto) 27.5 % Monocytes (%) (Auto) 10.7 % Neutrophils # (Auto) 4.0 10^3/uL Lymphocytes # (Auto) 2.0 10^3/uL Monocytes # (Auto) 0.8 10^3/uL Absolute Immature Granulocyte (auto 0.02 10^3 u/L Eosinophils % 5.7 % Basophils % 0.1 % Basophils # 0.0 10^3/uL Eosinophil Count 0.4 10^3/uL Sodium Level 137 mmol/L Potassium Level 4.5 mmol/L Chloride Level 101.0 mmol/L Carbon Dioxide Level 31.4 mmol/L Anion Gap 9.1 Blood Urea Nitrogen 15 mg/dL Creatinine 0.86 mg/dL Estimated GFR () 75.7 BUN/Creatinine Ratio 17.0 Glucose Level 82 mg/dL Calcium Level 9.4 mg/dL Total Bilirubin 0.2 mg/dL Aspartate Amino Transf (AST/SGOT) 14 U/L Alanine Aminotransferase (ALT/SGPT) 12 U/L Alkaline Phosphatase 61 U/L Total Protein 5.9 g/dL Albumin 2.6 g/dL Globulin 3.3 Percent Immature Gran (Cell Imm) 0.30 % Current Medications Medications (Trade) Dose Ordered Sig/April Route PRN Reason Start Time Stop Time Status Last Admin Dose Admin Ondansetron HCl (Zofran) 4 mg STK-MED ONCE .ROUTE 11/22/18 09:11 11/22/18 09:14 DC Morphine Sulfate (Morphine Sulfate) 2 mg STAT STAT IV 11/22/18 09:14 11/22/18 09:15 DC 11/22/18 09:18 Ondansetron HCl (Zofran) 4 mg STAT STAT IV 11/22/18 09:14 11/22/18 09:15 DC 11/22/18 09:18 Sodium Chloride 1,000 ml @ 0 mls/hr Q0M ONCE IV 11/22/18 09:30 11/22/18 09:31 DC 11/22/18 09:58 Sodium Chloride 1,000 ml @ ud STK-MED ONCE .ROUTE 11/22/18 09:46 11/22/18 09:47 DC Ceftriaxone Sodium 1000 mg/ Sodium Chloride 100 ml @ 100 mls/hr Q24HRS IV 11/22/18 11:00 12/22/18 10:59 11/22/18 11:11 Sodium Chloride 100 ml @ ud STK-MED ONCE IV 11/22/18 10:44 11/22/18 10:46 DC Ceftriaxone Sodium (Rocephin) 1,000 mg STK-MED ONCE .ROUTE 11/22/18 10:44 11/22/18 10:46 DC Tramadol HCl (Ultram) 50 mg Q6H PRN PO MILD PAIN 11/22/18 12:00 11/22/18 18:42 DC 11/22/18 14:21 Tramadol HCl (Ultram) 100 mg Q6H PRN PO SEVERE PAIN 11/22/18 12:00 11/22/18 18:42 DC 11/22/18 16:07 Morphine Sulfate (Morphine Sulfate) 3 mg Q6HR PRN IV PAIN 4 - 6 11/22/18 12:00 11/22/18 18:42 DC 11/22/18 13:29 Aspirin (Aspirin Ec) 81 mg DAILY PO 11/23/18 09:00 12/23/18 08:59 11/23/18 09:43 Docusate Sodium (Colace) 100 mg BID PO 11/22/18 21:00 12/22/18 20:59 11/23/18 09:43 Hydrochlorothiazide (Hydrochlorothiazide) 25 mg DAILY PO 11/23/18 09:00 11/23/18 12:19 DC 11/23/18 09:41 Levothyroxine Sodium (Synthroid) 112 mcg ACB PO 11/23/18 06:30 12/23/18 06:29 11/23/18 06:25 Metoprolol Tartrate (Lopressor) 50 mg BID PO 11/22/18 21:00 12/22/18 20:59 11/23/18 09:43 Tramadol HCl (Ultram) 100 mg Q8 PO 11/22/18 22:00 12/22/18 21:59 11/23/18 09:48 Zolpidem Tartrate (Ambien) 5 mg HS PO 11/22/18 21:00 12/22/18 20:59 11/22/18 20:36 Metformin HCl (Glucophage) 1,000 mg BID PO 11/22/18 21:00 12/22/18 20:59 11/23/18 09:43 Srhtg-7-Whdc Ethyl Esters (Lovaza) 1 gm DAILY24 PO 11/22/18 19:00 12/22/18 18:59 11/22/18 20:36 Potassium Chloride (Klor-Con 10) 20 meq BID PO 11/22/18 21:00 12/22/18 20:59 11/23/18 09:42 Rivaroxaban (Xarelto) 20 mg DAILY PO 11/23/18 09:00 12/23/18 08:59 11/23/18 09:41 Morphine Sulfate (Morphine Sulfate) 4 mg Q6HR PRN IV PAIN 4 - 6 11/22/18 19:00 12/22/18 18:59 11/23/18 10:51 Tramadol HCl (Ultram) 50 mg Q4HR PRN PO MILD PAIN 11/22/18 19:00 12/22/18 11:59 Tramadol HCl (Ultram) 100 mg Q4HR PRN PO SEVERE PAIN 11/22/18 19:00 12/22/18 11:59 Ketorolac Tromethamine (Toradol) 15 mg Q6H PRN IV PAIN 11/22/18 19:00 11/27/18 18:59 11/23/18 02:34 Famotidine (Pepcid) 20 mg BID PO 11/22/18 21:00 12/22/18 20:59 11/23/18 09:39 Course Sepsis Screening Results: Posi: POSITIVE Sepsis Qualifier/Stage: SEPSIS RISK Duration or Total Time Spent w: 2 hrs Vitals & review Data Vital Sign - Last 24 Hours 11/22/18 11/22/18 11/22/18 11/22/18 12:30 13:00 13:30 13:54 Temp 97.9 Pulse 89 91 91 91 Resp 18 18 18 18 B/P (MAP) 139/63 (88) 139/63 (88) 144/65 (91) Pulse Ox 97 99 97 99 O2 Delivery Room Air Room Air Room Air Room Air 11/22/18 11/22/18 11/22/18 11/22/18 14:36 19:25 23:26 23:29 Temp 98.0 98.0 Pulse 84 92 Resp 18 16 16 B/P (MAP) 111/49 (69) Pulse Ox 92 93 93 O2 Delivery Nasal Cannula Nasal Canula Nasal Cannula O2 Flow Rate 2.00 2.00 2.00 FiO2 28 11/23/18 11/23/18 11/23/18 11/23/18 00:19 00:24 04:45 07:54 Temp 97.8 97.5 97.9 97.8 97.5 97.9 Pulse 65 65 75 Resp 16 16 18 B/P (MAP) 97/59 (72) 92/46 (61) 113/54 (73) Pulse Ox 94 94 95 O2 Delivery Nasal Canula Nasal Cannula Nasal Canula Nasal Canula O2 Flow Rate 2.00 2.00 2.00 2.00 11/23/18 11/23/18 11/23/18 09:36 09:41 10:57 Pulse 75 Resp 18 B/P (MAP) 113/54 Pulse Ox 95 O2 Delivery Nasal Cannula Nasal Cannula O2 Flow Rate 2.00 2.00 FiO2 28 Intake and Output 11/22/18 11/22/18 11/23/18 15:00 23:00 07:00 Intake Total 1000 ml 300 ml Output Total 750 ml 425 ml Balance 250 ml -125 ml Laboratory Tests Test 11/22/18 08:34 11/22/18 10:00 11/23/18 05:19 White Blood Count 14.0 10^3/uL 7.2 10^3/uL Red Blood Count 4.29 10^6/uL 3.57 10^6/uL Hemoglobin 12.7 g/dL 10.5 g/dL Hematocrit 38.6 % 32.7 % Mean Corpuscular Volume 90.0 fL 91.6 fL Mean Corpuscular Hemoglobin 29.6 pg 29.4 pg Mean Corpuscular Hemoglobin Concent 32.9 g/dL 32.1 g/dL Red Cell Distribution Width 14.8 % 14.9 % Platelet Count 333 10^3/uL 254 10^3/uL Mean Platelet Volume 8.7 fL 9.0 fL Neutrophils (%) (Auto) 73.2 % 55.7 % Lymphocytes (%) (Auto) 17.4 % 27.5 % Monocytes (%) (Auto) 5.8 % 10.7 % Neutrophils # (Auto) 10.2 10^3/uL 4.0 10^3/uL Lymphocytes # (Auto) 2.4 10^3/uL 2.0 10^3/uL Monocytes # (Auto) 0.8 10^3/uL 0.8 10^3/uL Absolute Immature Granulocyte (auto 0.05 10^3 u/L 0.02 10^3 u/L Eosinophils % 2.9 % 5.7 % Basophils % 0.3 % 0.1 % Basophils # 0.0 10^3/uL 0.0 10^3/uL Eosinophil Count 0.4 10^3/uL 0.4 10^3/uL Prothrombin Time 10.1 SEC Prothrombin Time INR (Non-Therap) 1.0 Activated Partial Thromboplast Time 26.8 SEC D-Dimer 30.85 mg/L Sodium Level 138 mmol/L 137 mmol/L Potassium Level 3.7 mmol/L 4.5 mmol/L Chloride Level 96.0 mmol/L 101.0 mmol/L Carbon Dioxide Level 31.1 mmol/L 31.4 mmol/L Anion Gap 14.6 9.1 Blood Urea Nitrogen 17 mg/dL 15 mg/dL Creatinine 0.72 mg/dL 0.86 mg/dL Estimated GFR () 92.9 75.7 BUN/Creatinine Ratio 23.0 17.0 Glucose Level 103 mg/dL 82 mg/dL Calcium Level 10.4 mg/dL 9.4 mg/dL Total Bilirubin 0.4 mg/dL 0.2 mg/dL Aspartate Amino Transf (AST/SGOT) 19 U/L 14 U/L Alanine Aminotransferase (ALT/SGPT) 17 U/L 12 U/L Alkaline Phosphatase 76 U/L 61 U/L Total Creatine Kinase 44 U/L Troponin I < 0.02 ng/mL Pro-B-Type Natriuretic Peptide 95 pg/mL Total Protein 7.1 g/dL 5.9 g/dL Albumin 3.4 g/dL 2.6 g/dL Globulin 3.7 3.3 Percent Immature Gran (Cell Imm) 0.40 % 0.30 % Helicobacter pylori Screen POSITIVE Urine Collection Type VOID Urine Color YELLOW Urine Appearance CLOUDY Urine Bilirubin NEGATIVE MG/DL Urine Ketones 5 mg/dL Urine Specific [place] 1.010 Urine pH 9 Urine Protein NEGATIVE Urine Urobilinogen NORMAL Urine Nitrate POSITIVE Urine Leukocyte Esterase 500/uL 2+ Urine Blood 25 1+ Urine RBC 2-5 RBC/HPF Urine WBC TNTC WBC/HPF Urine Squamous Epithelial Cells MANY #/HPF Urine Bacteria MANY Urine Glucose NORMAL Current Medications Medications (Trade) Dose Ordered Sig/April PRN Reason Start Time Stop Time Status Last Admin Aspirin (Aspirin Ec) 81 mg DAILY 11/23/18 09:00 12/23/18 08:59 11/23/18 09:43 Ceftriaxone Sodium 1000 mg/ Sodium Chloride 100 ml @ 100 mls/hr Q24HRS 11/22/18 11:00 12/22/18 10:59 11/22/18 11:11 Docusate Sodium (Colace) 100 mg BID 11/22/18 21:00 12/22/18 20:59 11/23/18 09:43 Famotidine (Pepcid) 20 mg BID 11/22/18 21:00 12/22/18 20:59 11/23/18 09:39 Ketorolac Tromethamine (Toradol) 15 mg Q6H PRN PAIN 11/22/18 19:00 11/27/18 18:59 11/23/18 02:34 Levothyroxine Sodium (Synthroid) 112 mcg ACB 11/23/18 06:30 12/23/18 06:29 11/23/18 06:25 Metformin HCl (Glucophage) 1,000 mg BID 11/22/18 21:00 12/22/18 20:59 11/23/18 09:43 Metoprolol Tartrate (Lopressor) 50 mg BID 11/22/18 21:00 12/22/18 20:59 11/23/18 09:43 Morphine Sulfate (Morphine Sulfate) 4 mg Q6HR PRN PAIN 4 - 6 11/22/18 19:00 12/22/18 18:59 11/23/18 10:51 Jnymf-2-Zqan Ethyl Esters (Lovaza) 1 gm DAILY24 11/22/18 19:00 12/22/18 18:59 11/22/18 20:36 Potassium Chloride (Klor-Con 10) 20 meq BID 11/22/18 21:00 12/22/18 20:59 11/23/18 09:42 Rivaroxaban (Xarelto) 20 mg DAILY 11/23/18 09:00 12/23/18 08:59 11/23/18 09:41 Tramadol HCl (Ultram) 50 mg Q4HR PRN MILD PAIN 11/22/18 19:00 12/22/18 11:59 Tramadol HCl (Ultram) 100 mg Q4HR PRN SEVERE PAIN 11/22/18 19:00 12/22/18 11:59 Tramadol HCl (Ultram) 100 mg Q8 11/22/18 22:00 12/22/18 21:59 11/23/18 09:48 Zolpidem Tartrate (Ambien) 5 mg HS 11/22/18 21:00 12/22/18 20:59 11/22/18 20:36 Sepsis Infection Criteria Pres: Suspected Infection LEVEL 1 SEPSIS INFECTION CRITE: ABX Therapy, Urinary Tract Infection LEVEL 2-SIRS (LIST ALL THAT AP: None/Not assessed Cardiovascular Evidence: Not Assessed or None Hematologic Evidence: None/Not assessed Hepatic Evidence: None/Not assessed Metabolic Evidence: None/Not assessed Neurological Evidence: None/Not assessed Respiratory Evidence: Need for O2 to keep>90%, O2 SAT<90room air Renal Evidence: None/Not assessed O2 Sat by Pulse Oximetry: 95 Oxygen Flow Rate: 2.00 Assessment/Plan Assessment/Plan Assessment/Plan 1. Right Periprosthetic Hip Fx: Ortho managing. Likely conservative treatment with pain control, PT. 2. HTN: cont BB, d/c HCTZ 3. DM: cont Metformin 4. CAD: cont ASA, no Statin for outpatient management. Will not add currently 5. Hypothyroidism: cont Synthroid 6. UTI: cont IV abx, pending urine cx. 7. PPx: Pepcid, Xarelto 8. Anemia: recheck CBC in AM. RUSLAN EDWARDS MD November 23, 2018 12:25
--- NOTE | 2018-11-23 13:29 | PRM.PN ---
Subjective Subjective Date: November 23, 2018 Time: 13:28 Subjective Up in chair with Nursing staff Pain some better Cont with PT Patient History: Patient reports no known family medical history. VTE VTE Risk Total Score: >5 VTE Risk Score VTE Risk: Score 0-1 = Low Risk (Aggressive mobilization; early ambulation; no VTE prophylaxis required) Score 2: Moderate Risk (Intermittent/Pneumatic Compression Device OR Lovenox/Heparin/Coumadin) Score 3-4: High Risk (Intermittent/Pneumatic Compression Device AND Lovenox/Heparin/Coumadin) Score > or =5: Highest Risk (Intermittent/Pneumatic Compression Device AND Lovenox/Heparin/Coumadin) Review of Systems Allergies: Coded Allergies: No Known Allergies (Unverified , 11/22/18) Scheduled Aspirin (Aspir 81), 1 TAB PO DAILY, (Reported) Docusate Sodium (Docusate Sodium), 1 CAP PO BID, (Reported) Hydrochlorothiazide (Hydrochlorothiazide), 1 TAB PO DAILY, (Reported) Levothyroxine Sodium (Levothyroxine Sodium), 1 TAB PO DAILY, (Reported) Metformin Hcl (Metformin Hcl), 1 TAB PO BID, (Reported) Metoprolol Tartrate 50MG (Lopresser 50MG), 50 MG PO BID, (Reported) [place]-3 Fatty Acids/Fish Oil (Fish Oil 1,000 Mg Capsule), 1 EACH PO DAILY24, (Reported) Potassium Chloride (Potassium Chloride), 1 TAB PO BID, (Reported) Rivaroxaban (Xarelto), 1 TAB PO DAILY, (Reported) Tramadol Hcl (Tramadol Hcl), 100 MG PO Q8, (Reported) Vit A,C & E/Lutein/Minerals (Ocuvite Tablet), 1 EACH PO DAILY24, (Reported) Zolpidem Tartrate (Ambien), 1 TAB PO HS, (Reported) Discontinued Medications Gabapentin (Gabapentin), 1 CAP PO TID, (Reported) Discontinued Reason: No Longer Taking Metoprolol Tartrate 25MG (Lopresser 25MG), 1 TAB PO BID, (Reported) Discontinued Reason: Discontinue Objective Vitals and I/O Vital Sign - Last 24 Hours 11/22/18 11/22/18 11/22/18 11/22/18 12:30 13:00 13:30 13:54 Temp 97.9 Pulse 89 91 91 91 Resp 18 18 18 18 B/P (MAP) 139/63 (88) 139/63 (88) 144/65 (91) Pulse Ox 97 99 97 99 O2 Delivery Room Air Room Air Room Air Room Air 11/22/18 11/22/18 11/22/18 11/22/18 14:36 19:25 23:26 23:29 Temp 98.0 98.0 Pulse 84 92 Resp 18 16 16 B/P (MAP) 111/49 (69) Pulse Ox 92 93 93 O2 Delivery Nasal Cannula Nasal Canula Nasal Cannula O2 Flow Rate 2.00 2.00 2.00 FiO2 28 11/23/18 11/23/18 11/23/18 11/23/18 00:19 00:24 04:45 07:54 Temp 97.8 97.5 97.9 97.8 97.5 97.9 Pulse 65 65 75 Resp 16 16 18 B/P (MAP) 97/59 (72) 92/46 (61) 113/54 (73) Pulse Ox 94 94 95 O2 Delivery Nasal Canula Nasal Cannula Nasal Canula Nasal Canula O2 Flow Rate 2.00 2.00 2.00 2.00 11/23/18 11/23/18 11/23/18 09:36 09:41 10:57 Pulse 75 Resp 18 B/P (MAP) 113/54 Pulse Ox 95 O2 Delivery Nasal Cannula Nasal Cannula O2 Flow Rate 2.00 2.00 FiO2 28 Intake and Output 11/22/18 11/22/18 11/23/18 15:00 23:00 07:00 Intake Total 1000 ml 300 ml Output Total 750 ml 425 ml Balance 250 ml -125 ml General: Alert, Cooperative, No acute distress HEENT: Atraumatic, PERRLA, EOMI Neck: Supple, No JVD Lungs: Clear to auscultation, Normal air movement Heart: Regular rate, Normal S1, Normal S2, No murmurs Abdomen: Normal bowel sounds, Soft, No tenderness Extremities: No clubbing, No cyanosis, Normal pulses Skin: No rashes, No breakdown, No significant lesion Neuro: Normal speech, Strength at 5/5 X4 ext, Normal tone, Sensation intact, Cranial nerves 3-12 NL Psych/Mental Status: Other (delirious, alert. ) All Results(Lab/Rad) Laboratory Tests Test 11/23/18 05:19 White Blood Count 7.2 10^3/uL Red Blood Count 3.57 10^6/uL Hemoglobin 10.5 g/dL Hematocrit 32.7 % Mean Corpuscular Volume 91.6 fL Mean Corpuscular Hemoglobin 29.4 pg Mean Corpuscular Hemoglobin Concent 32.1 g/dL Red Cell Distribution Width 14.9 % Platelet Count 254 10^3/uL Mean Platelet Volume 9.0 fL Neutrophils (%) (Auto) 55.7 % Lymphocytes (%) (Auto) 27.5 % Monocytes (%) (Auto) 10.7 % Neutrophils # (Auto) 4.0 10^3/uL Lymphocytes # (Auto) 2.0 10^3/uL Monocytes # (Auto) 0.8 10^3/uL Absolute Immature Granulocyte (auto 0.02 10^3 u/L Eosinophils % 5.7 % Basophils % 0.1 % Basophils # 0.0 10^3/uL Eosinophil Count 0.4 10^3/uL Sodium Level 137 mmol/L Potassium Level 4.5 mmol/L Chloride Level 101.0 mmol/L Carbon Dioxide Level 31.4 mmol/L Anion Gap 9.1 Blood Urea Nitrogen 15 mg/dL Creatinine 0.86 mg/dL Estimated GFR () 75.7 BUN/Creatinine Ratio 17.0 Glucose Level 82 mg/dL Calcium Level 9.4 mg/dL Total Bilirubin 0.2 mg/dL Aspartate Amino Transf (AST/SGOT) 14 U/L Alanine Aminotransferase (ALT/SGPT) 12 U/L Alkaline Phosphatase 61 U/L Total Protein 5.9 g/dL Albumin 2.6 g/dL Globulin 3.3 Percent Immature Gran (Cell Imm) 0.30 % Current Medications Medications (Trade) Dose Ordered Sig/April Route PRN Reason Start Time Stop Time Status Last Admin Dose Admin Ondansetron HCl (Zofran) 4 mg STK-MED ONCE .ROUTE 11/22/18 09:11 11/22/18 09:14 DC Morphine Sulfate (Morphine Sulfate) 2 mg STAT STAT IV 11/22/18 09:14 11/22/18 09:15 DC 11/22/18 09:18 Ondansetron HCl (Zofran) 4 mg STAT STAT IV 11/22/18 09:14 11/22/18 09:15 DC 11/22/18 09:18 Sodium Chloride 1,000 ml @ 0 mls/hr Q0M ONCE IV 11/22/18 09:30 11/22/18 09:31 DC 11/22/18 09:58 Sodium Chloride 1,000 ml @ ud STK-MED ONCE .ROUTE 11/22/18 09:46 11/22/18 09:47 DC Ceftriaxone Sodium 1000 mg/ Sodium Chloride 100 ml @ 100 mls/hr Q24HRS IV 11/22/18 11:00 12/22/18 10:59 11/22/18 11:11 Sodium Chloride 100 ml @ ud STK-MED ONCE IV 11/22/18 10:44 11/22/18 10:46 DC Ceftriaxone Sodium (Rocephin) 1,000 mg STK-MED ONCE .ROUTE 11/22/18 10:44 11/22/18 10:46 DC Tramadol HCl (Ultram) 50 mg Q6H PRN PO MILD PAIN 11/22/18 12:00 11/22/18 18:42 DC 11/22/18 14:21 Tramadol HCl (Ultram) 100 mg Q6H PRN PO SEVERE PAIN 11/22/18 12:00 11/22/18 18:42 DC 11/22/18 16:07 Morphine Sulfate (Morphine Sulfate) 3 mg Q6HR PRN IV PAIN 4 - 6 11/22/18 12:00 11/22/18 18:42 DC 11/22/18 13:29 Aspirin (Aspirin Ec) 81 mg DAILY PO 11/23/18 09:00 12/23/18 08:59 11/23/18 09:43 Docusate Sodium (Colace) 100 mg BID PO 11/22/18 21:00 12/22/18 20:59 11/23/18 09:43 Hydrochlorothiazide (Hydrochlorothiazide) 25 mg DAILY PO 11/23/18 09:00 11/23/18 12:19 DC 11/23/18 09:41 Levothyroxine Sodium (Synthroid) 112 mcg ACB PO 11/23/18 06:30 12/23/18 06:29 11/23/18 06:25 Metoprolol Tartrate (Lopressor) 50 mg BID PO 11/22/18 21:00 12/22/18 20:59 11/23/18 09:43 Tramadol HCl (Ultram) 100 mg Q8 PO 11/22/18 22:00 12/22/18 21:59 11/23/18 09:48 Zolpidem Tartrate (Ambien) 5 mg HS PO 11/22/18 21:00 12/22/18 20:59 11/22/18 20:36 Metformin HCl (Glucophage) 1,000 mg BID PO 11/22/18 21:00 12/22/18 20:59 11/23/18 09:43 Wttff-8-Svvw Ethyl Esters (Lovaza) 1 gm DAILY24 PO 11/22/18 19:00 12/22/18 18:59 11/22/18 20:36 Potassium Chloride (Klor-Con 10) 20 meq BID PO 11/22/18 21:00 12/22/18 20:59 11/23/18 09:42 Rivaroxaban (Xarelto) 20 mg DAILY PO 11/23/18 09:00 12/23/18 08:59 11/23/18 09:41 Morphine Sulfate (Morphine Sulfate) 4 mg Q6HR PRN IV PAIN 4 - 6 11/22/18 19:00 12/22/18 18:59 11/23/18 10:51 Tramadol HCl (Ultram) 50 mg Q4HR PRN PO MILD PAIN 11/22/18 19:00 12/22/18 11:59 Tramadol HCl (Ultram) 100 mg Q4HR PRN PO SEVERE PAIN 11/22/18 19:00 12/22/18 11:59 Ketorolac Tromethamine (Toradol) 15 mg Q6H PRN IV PAIN 11/22/18 19:00 11/27/18 18:59 11/23/18 02:34 Famotidine (Pepcid) 20 mg BID PO 11/22/18 21:00 12/22/18 20:59 11/23/18 09:39 Course Sepsis Screening Results: Posi: POSITIVE Sepsis Qualifier/Stage: SEPSIS RISK Duration or Total Time Spent w: 2 hrs Vitals & review Data Vital Sign - Last 24 Hours 11/22/18 11/22/18 11/22/18 11/22/18 12:30 13:00 13:30 13:54 Temp 97.9 Pulse 89 91 91 91 Resp 18 18 18 18 B/P (MAP) 139/63 (88) 139/63 (88) 144/65 (91) Pulse Ox 97 99 97 99 O2 Delivery Room Air Room Air Room Air Room Air 11/22/18 11/22/18 11/22/18 11/22/18 14:36 19:25 23:26 23:29 Temp 98.0 98.0 Pulse 84 92 Resp 18 16 16 B/P (MAP) 111/49 (69) Pulse Ox 92 93 93 O2 Delivery Nasal Cannula Nasal Canula Nasal Cannula O2 Flow Rate 2.00 2.00 2.00 FiO2 28 11/23/18 11/23/18 11/23/18 11/23/18 00:19 00:24 04:45 07:54 Temp 97.8 97.5 97.9 97.8 97.5 97.9 Pulse 65 65 75 Resp 16 16 18 B/P (MAP) 97/59 (72) 92/46 (61) 113/54 (73) Pulse Ox 94 94 95 O2 Delivery Nasal Canula Nasal Cannula Nasal Canula Nasal Canula O2 Flow Rate 2.00 2.00 2.00 2.00 11/23/18 11/23/18 11/23/18 09:36 09:41 10:57 Pulse 75 Resp 18 B/P (MAP) 113/54 Pulse Ox 95 O2 Delivery Nasal Cannula Nasal Cannula O2 Flow Rate 2.00 2.00 FiO2 28 Intake and Output 11/22/18 11/22/18 11/23/18 15:00 23:00 07:00 Intake Total 1000 ml 300 ml Output Total 750 ml 425 ml Balance 250 ml -125 ml Laboratory Tests Test 11/22/18 08:34 11/22/18 10:00 11/23/18 05:19 White Blood Count 14.0 10^3/uL 7.2 10^3/uL Red Blood Count 4.29 10^6/uL 3.57 10^6/uL Hemoglobin 12.7 g/dL 10.5 g/dL Hematocrit 38.6 % 32.7 % Mean Corpuscular Volume 90.0 fL 91.6 fL Mean Corpuscular Hemoglobin 29.6 pg 29.4 pg Mean Corpuscular Hemoglobin Concent 32.9 g/dL 32.1 g/dL Red Cell Distribution Width 14.8 % 14.9 % Platelet Count 333 10^3/uL 254 10^3/uL Mean Platelet Volume 8.7 fL 9.0 fL Neutrophils (%) (Auto) 73.2 % 55.7 % Lymphocytes (%) (Auto) 17.4 % 27.5 % Monocytes (%) (Auto) 5.8 % 10.7 % Neutrophils # (Auto) 10.2 10^3/uL 4.0 10^3/uL Lymphocytes # (Auto) 2.4 10^3/uL 2.0 10^3/uL Monocytes # (Auto) 0.8 10^3/uL 0.8 10^3/uL Absolute Immature Granulocyte (auto 0.05 10^3 u/L 0.02 10^3 u/L Eosinophils % 2.9 % 5.7 % Basophils % 0.3 % 0.1 % Basophils # 0.0 10^3/uL 0.0 10^3/uL Eosinophil Count 0.4 10^3/uL 0.4 10^3/uL Prothrombin Time 10.1 SEC Prothrombin Time INR (Non-Therap) 1.0 Activated Partial Thromboplast Time 26.8 SEC D-Dimer 30.85 mg/L Sodium Level 138 mmol/L 137 mmol/L Potassium Level 3.7 mmol/L 4.5 mmol/L Chloride Level 96.0 mmol/L 101.0 mmol/L Carbon Dioxide Level 31.1 mmol/L 31.4 mmol/L Anion Gap 14.6 9.1 Blood Urea Nitrogen 17 mg/dL 15 mg/dL Creatinine 0.72 mg/dL 0.86 mg/dL Estimated GFR () 92.9 75.7 BUN/Creatinine Ratio 23.0 17.0 Glucose Level 103 mg/dL 82 mg/dL Calcium Level 10.4 mg/dL 9.4 mg/dL Total Bilirubin 0.4 mg/dL 0.2 mg/dL Aspartate Amino Transf (AST/SGOT) 19 U/L 14 U/L Alanine Aminotransferase (ALT/SGPT) 17 U/L 12 U/L Alkaline Phosphatase 76 U/L 61 U/L Total Creatine Kinase 44 U/L Troponin I < 0.02 ng/mL Pro-B-Type Natriuretic Peptide 95 pg/mL Total Protein 7.1 g/dL 5.9 g/dL Albumin 3.4 g/dL 2.6 g/dL Globulin 3.7 3.3 Percent Immature Gran (Cell Imm) 0.40 % 0.30 % Helicobacter pylori Screen POSITIVE Urine Collection Type VOID Urine Color YELLOW Urine Appearance CLOUDY Urine Bilirubin NEGATIVE MG/DL Urine Ketones 5 mg/dL Urine Specific [place] 1.010 Urine pH 9 Urine Protein NEGATIVE Urine Urobilinogen NORMAL Urine Nitrate POSITIVE Urine Leukocyte Esterase 500/uL 2+ Urine Blood 25 1+ Urine RBC 2-5 RBC/HPF Urine WBC TNTC WBC/HPF Urine Squamous Epithelial Cells MANY #/HPF Urine Bacteria MANY Urine Glucose NORMAL Current Medications Medications (Trade) Dose Ordered Sig/April PRN Reason Start Time Stop Time Status Last Admin Aspirin (Aspirin Ec) 81 mg DAILY 11/23/18 09:00 12/23/18 08:59 11/23/18 09:43 Ceftriaxone Sodium 1000 mg/ Sodium Chloride 100 ml @ 100 mls/hr Q24HRS 11/22/18 11:00 12/22/18 10:59 11/22/18 11:11 Docusate Sodium (Colace) 100 mg BID 11/22/18 21:00 12/22/18 20:59 11/23/18 09:43 Famotidine (Pepcid) 20 mg BID 11/22/18 21:00 12/22/18 20:59 11/23/18 09:39 Ketorolac Tromethamine (Toradol) 15 mg Q6H PRN PAIN 11/22/18 19:00 11/27/18 18:59 11/23/18 02:34 Levothyroxine Sodium (Synthroid) 112 mcg ACB 11/23/18 06:30 12/23/18 06:29 11/23/18 06:25 Metformin HCl (Glucophage) 1,000 mg BID 11/22/18 21:00 12/22/18 20:59 11/23/18 09:43 Metoprolol Tartrate (Lopressor) 50 mg BID 11/22/18 21:00 12/22/18 20:59 11/23/18 09:43 Morphine Sulfate (Morphine Sulfate) 4 mg Q6HR PRN PAIN 4 - 6 11/22/18 19:00 12/22/18 18:59 11/23/18 10:51 Grbgp-1-Mtom Ethyl Esters (Lovaza) 1 gm DAILY24 11/22/18 19:00 12/22/18 18:59 11/22/18 20:36 Potassium Chloride (Klor-Con 10) 20 meq BID 11/22/18 21:00 12/22/18 20:59 11/23/18 09:42 Rivaroxaban (Xarelto) 20 mg DAILY 11/23/18 09:00 12/23/18 08:59 11/23/18 09:41 Tramadol HCl (Ultram) 50 mg Q4HR PRN MILD PAIN 11/22/18 19:00 12/22/18 11:59 Tramadol HCl (Ultram) 100 mg Q4HR PRN SEVERE PAIN 11/22/18 19:00 12/22/18 11:59 Tramadol HCl (Ultram) 100 mg Q8 11/22/18 22:00 12/22/18 21:59 11/23/18 09:48 Zolpidem Tartrate (Ambien) 5 mg HS 11/22/18 21:00 12/22/18 20:59 11/22/18 20:36 Sepsis Infection Criteria Pres: Suspected Infection LEVEL 1 SEPSIS INFECTION CRITE: ABX Therapy, Urinary Tract Infection LEVEL 2-SIRS (LIST ALL THAT AP: None/Not assessed Cardiovascular Evidence: Not Assessed or None Hematologic Evidence: None/Not assessed Hepatic Evidence: None/Not assessed Metabolic Evidence: None/Not assessed Neurological Evidence: None/Not assessed Respiratory Evidence: Need for O2 to keep>90%, O2 SAT<90room air Renal Evidence: None/Not assessed O2 Sat by Pulse Oximetry: 97 Oxygen Flow Rate: 2.00 KATHI FRANZ MD November 23, 2018 13:29
[2018-11-23 16:41] VITALS: BP 118/52
[2018-11-23] MEDS: OCUVITE WITH LUTEIN PO SCH (19:00)
[2018-11-23 20:00] VITALS: BP 126/86
--- NOTE | 2018-11-23 20:30 | NUR ---
PT TRANSFERRED FROM CHAIR TO BED WITH WALKER AND ASSIST X2
[2018-11-23] MEDS: AMBIEN PO SCH (21:43)
[2018-11-23] MEDS: LOVAZA PO SCH (21:43)
[2018-11-23] MEDS: VALIUM PO SCH (21:44)
--- NOTE | 2018-11-23 22:00 | NUR ---
NOTIFIED DR. EDWARDS, HELD KLOR CON FOR POTASSIUM OF 4.5. AND GLUCOPHAGE FOR BLOOD GLUCOSE OF 79, WAS 67 AT DINNER TIME
[2018-11-24] VITALS: BP 130/52
[2018-11-24 05:11] VITALS: BP 120/52
[2018-11-24] MEDS: SYNTHROID PO SCH (05:19)
[2018-11-24] MEDS: ULTRAM PO SCH ×5 (05:19→23:43)
[2018-11-24 05:20] LABS: BASOPHIL % 0.1 % (0.0-0.2); EOSINOPHIL # 0.4 10^3/uL (0.0-0.2); EOSINOPHIL % 4.4 % (0.0-5.0); LYMPHOCYTES # 2.2 10^3/uL (1.0-4.8); MEAN CELL HGB 29.4 pg (26-34); MEAN CELL HGB CONCENTRATION 32.6 g/dL (33-37); MEAN CORP VOLUME 90.1 fL (78-100); MEAN PLATELET VOLUME 8.7 fL (7.8-11.0); MONOCYTES # 0.7 10^3/uL (0.3-0.8); MONOCYTES % 8.4 % (5.0-12.0); NEUTROPHIL # 5.2 10^3/uL (1.8-7.7); RED CELL DISTRIBUTION WIDTH 14.8 % (11.5-14.5); WHITE BLOOD CELL 8.5 10^3/uL (4.5-11.0)
[2018-11-24 05:50] LABS: CALCIUM 9.7 mg/dL (8.4-10.5); CARBON DIOXIDE 31.5 mmol/L (20.0-32)
--- NOTE | 2018-11-24 06:35 | NUR ---
REPORT TO KHUSHBOO CAN
[2018-11-24 08:14] VITALS: BP 123/67
[2018-11-24] MEDS: KLOR-CON 10 PO SCH ×2 (09:07→21:07)
[2018-11-24] MEDS: ASPIRIN EC PO SCH (09:07)
[2018-11-24] MEDS: TORADOL IV PRN (09:07)
[2018-11-24] MEDS: XARELTO PO SCH (09:08)
[2018-11-24] MEDS: COLACE PO SCH ×2 (09:08→21:07)
[2018-11-24] MEDS: PEPCID PO SCH ×2 (09:08→21:07)
[2018-11-24] MEDS: GLUCOPHAGE PO SCH ×2 (09:08→21:08)
[2018-11-24] MEDS: LOPRESSOR PO SCH ×2 (09:08→21:08)
[2018-11-24] MEDS: ROCEPHIN 1,000 MG in NS 100ML 100 ML IV SCH (11:14)
[2018-11-24 12:22] VITALS: BP 123/62
[2018-11-24 16:50] VITALS: BP 133/58
[2018-11-24] MEDS: OCUVITE WITH LUTEIN PO SCH (19:00)
[2018-11-24] MEDS: LOVAZA PO SCH (19:07)
[2018-11-24 19:15] VITALS: BP 119/59
--- NOTE | 2018-11-24 19:15 | NUR ---
pt transferred from chair to bed with gait belt, walker and assist x2
[2018-11-24] MEDS: AMBIEN PO SCH ×2 (21:00→21:07)
[2018-11-24] MEDS: VALIUM PO SCH (21:07)
[2018-11-25 00:21] VITALS: BP 161/73
[2018-11-25 05:13] VITALS: BP 121/59
[2018-11-25] MEDS: SYNTHROID PO SCH (05:44)
--- NOTE | 2018-11-25 06:12 | NUR ---
REPORT TO KHUSHBOO CAN
--- NOTE | 2018-11-25 07:38 | NUR ---
UP TO CHAIR PT ASSISTED FROM BSC TO RECLINER AT THIS TIME. PT TOLERATED WELL. X1 ASSISTED NEEDED. CALL LIGHT PLACED WITHIN REACH.
[2018-11-25 08:53] VITALS: BP 130/53
[2018-11-25] MEDS: ASPIRIN EC PO SCH (08:56)
[2018-11-25] MEDS: KLOR-CON 10 PO SCH (08:56)
[2018-11-25] MEDS: COLACE PO SCH (08:56)
[2018-11-25] MEDS: XARELTO PO SCH (08:56)
[2018-11-25] MEDS: PEPCID PO SCH (08:56)
[2018-11-25] MEDS: LOPRESSOR PO SCH (08:57)
[2018-11-25] MEDS: GLUCOPHAGE PO SCH (08:57)
--- NOTE | 2018-11-25 09:38 | PRM.PN ---
Subjective Subjective Date: November 25, 2018 Time: 09:37 Subjective Pain ok able to transfer with minimal pain Has UTI amoxicillin Will dc to [place] Patient History: Patient reports no known family medical history. VTE VTE Risk Total Score: >5 VTE Risk Score VTE Risk: Score 0-1 = Low Risk (Aggressive mobilization; early ambulation; no VTE prophylaxis required) Score 2: Moderate Risk (Intermittent/Pneumatic Compression Device OR Lovenox/Heparin/Coumadin) Score 3-4: High Risk (Intermittent/Pneumatic Compression Device AND Lovenox/Heparin/Coumadin) Score > or =5: Highest Risk (Intermittent/Pneumatic Compression Device AND Lovenox/Heparin/Coumadin) Review of Systems Allergies: Coded Allergies: No Known Allergies (Unverified , 11/22/18) Scheduled Aspirin (Aspir 81), 1 TAB PO DAILY, (Reported) Docusate Sodium (Docusate Sodium), 1 CAP PO BID, (Reported) Hydrochlorothiazide (Hydrochlorothiazide), 1 TAB PO DAILY, (Reported) Levothyroxine Sodium (Levothyroxine Sodium), 1 TAB PO DAILY, (Reported) Metformin Hcl (Metformin Hcl), 1 TAB PO BID, (Reported) Metoprolol Tartrate 50MG (Lopresser 50MG), 50 MG PO BID, (Reported) [place]-3 Fatty Acids/Fish Oil (Fish Oil 1,000 Mg Capsule), 1 EACH PO DAILY24, (Reported) Potassium Chloride (Potassium Chloride), 1 TAB PO BID, (Reported) Rivaroxaban (Xarelto), 1 TAB PO DAILY, (Reported) Tramadol Hcl (Tramadol Hcl), 100 MG PO Q8, (Reported) Vit A,C & E/Lutein/Minerals (Ocuvite Tablet), 1 EACH PO DAILY24, (Reported) Zolpidem Tartrate (Ambien), 1 TAB PO HS, (Reported) Discontinued Medications Gabapentin (Gabapentin), 1 CAP PO TID, (Reported) Discontinued Reason: No Longer Taking Metoprolol Tartrate 25MG (Lopresser 25MG), 1 TAB PO BID, (Reported) Discontinued Reason: Discontinue Objective Vitals and I/O Vital Sign - Last 24 Hours 11/22/18 11/22/18 11/22/18 11/22/18 12:30 13:00 13:30 13:54 Temp 97.9 Pulse 89 91 91 91 Resp 18 18 18 18 B/P (MAP) 139/63 (88) 139/63 (88) 144/65 (91) Pulse Ox 97 99 97 99 O2 Delivery Room Air Room Air Room Air Room Air 11/22/18 11/22/18 11/22/18 11/22/18 14:36 19:25 23:26 23:29 Temp 98.0 98.0 Pulse 84 92 Resp 18 16 16 B/P (MAP) 111/49 (69) Pulse Ox 92 93 93 O2 Delivery Nasal Cannula Nasal Canula Nasal Cannula O2 Flow Rate 2.00 2.00 2.00 FiO2 28 11/23/18 11/23/18 11/23/18 11/23/18 00:19 00:24 04:45 07:54 Temp 97.8 97.5 97.9 97.8 97.5 97.9 Pulse 65 65 75 Resp 16 16 18 B/P (MAP) 97/59 (72) 92/46 (61) 113/54 (73) Pulse Ox 94 94 95 O2 Delivery Nasal Canula Nasal Cannula Nasal Canula Nasal Canula O2 Flow Rate 2.00 2.00 2.00 2.00 11/23/18 11/23/18 11/23/18 09:36 09:41 10:57 Pulse 75 Resp 18 B/P (MAP) 113/54 Pulse Ox 95 O2 Delivery Nasal Cannula Nasal Cannula O2 Flow Rate 2.00 2.00 FiO2 28 Intake and Output 11/22/18 11/22/18 11/23/18 15:00 23:00 07:00 Intake Total 1000 ml 300 ml Output Total 750 ml 425 ml Balance 250 ml -125 ml General: Alert, Cooperative, No acute distress HEENT: Atraumatic, PERRLA, EOMI Neck: Supple, No JVD Lungs: Clear to auscultation, Normal air movement Heart: Regular rate, Normal S1, Normal S2, No murmurs Abdomen: Normal bowel sounds, Soft, No tenderness Extremities: No clubbing, No cyanosis, Normal pulses Skin: No rashes, No breakdown, No significant lesion Neuro: Normal speech, Strength at 5/5 X4 ext, Normal tone, Sensation intact, Cranial nerves 3-12 NL Psych/Mental Status: Other (alert, less confused than yesterday) All Results(Lab/Rad) Laboratory Tests Test 11/23/18 05:19 White Blood Count 7.2 10^3/uL Red Blood Count 3.57 10^6/uL Hemoglobin 10.5 g/dL Hematocrit 32.7 % Mean Corpuscular Volume 91.6 fL Mean Corpuscular Hemoglobin 29.4 pg Mean Corpuscular Hemoglobin Concent 32.1 g/dL Red Cell Distribution Width 14.9 % Platelet Count 254 10^3/uL Mean Platelet Volume 9.0 fL Neutrophils (%) (Auto) 55.7 % Lymphocytes (%) (Auto) 27.5 % Monocytes (%) (Auto) 10.7 % Neutrophils # (Auto) 4.0 10^3/uL Lymphocytes # (Auto) 2.0 10^3/uL Monocytes # (Auto) 0.8 10^3/uL Absolute Immature Granulocyte (auto 0.02 10^3 u/L Eosinophils % 5.7 % Basophils % 0.1 % Basophils # 0.0 10^3/uL Eosinophil Count 0.4 10^3/uL Sodium Level 137 mmol/L Potassium Level 4.5 mmol/L Chloride Level 101.0 mmol/L Carbon Dioxide Level 31.4 mmol/L Anion Gap 9.1 Blood Urea Nitrogen 15 mg/dL Creatinine 0.86 mg/dL Estimated GFR () 75.7 BUN/Creatinine Ratio 17.0 Glucose Level 82 mg/dL Calcium Level 9.4 mg/dL Total Bilirubin 0.2 mg/dL Aspartate Amino Transf (AST/SGOT) 14 U/L Alanine Aminotransferase (ALT/SGPT) 12 U/L Alkaline Phosphatase 61 U/L Total Protein 5.9 g/dL Albumin 2.6 g/dL Globulin 3.3 Percent Immature Gran (Cell Imm) 0.30 % Current Medications Medications (Trade) Dose Ordered Sig/April Route PRN Reason Start Time Stop Time Status Last Admin Dose Admin Ondansetron HCl (Zofran) 4 mg STK-MED ONCE .ROUTE 11/22/18 09:11 11/22/18 09:14 DC Morphine Sulfate (Morphine Sulfate) 2 mg STAT STAT IV 11/22/18 09:14 11/22/18 09:15 DC 11/22/18 09:18 Ondansetron HCl (Zofran) 4 mg STAT STAT IV 11/22/18 09:14 11/22/18 09:15 DC 11/22/18 09:18 Sodium Chloride 1,000 ml @ 0 mls/hr Q0M ONCE IV 11/22/18 09:30 11/22/18 09:31 DC 11/22/18 09:58 Sodium Chloride 1,000 ml @ ud STK-MED ONCE .ROUTE 11/22/18 09:46 11/22/18 09:47 DC Ceftriaxone Sodium 1000 mg/ Sodium Chloride 100 ml @ 100 mls/hr Q24HRS IV 11/22/18 11:00 12/22/18 10:59 11/22/18 11:11 Sodium Chloride 100 ml @ ud STK-MED ONCE IV 11/22/18 10:44 11/22/18 10:46 DC Ceftriaxone Sodium (Rocephin) 1,000 mg STK-MED ONCE .ROUTE 11/22/18 10:44 11/22/18 10:46 DC Tramadol HCl (Ultram) 50 mg Q6H PRN PO MILD PAIN 11/22/18 12:00 11/22/18 18:42 DC 11/22/18 14:21 Tramadol HCl (Ultram) 100 mg Q6H PRN PO SEVERE PAIN 11/22/18 12:00 11/22/18 18:42 DC 11/22/18 16:07 Morphine Sulfate (Morphine Sulfate) 3 mg Q6HR PRN IV PAIN 4 - 6 11/22/18 12:00 11/22/18 18:42 DC 11/22/18 13:29 Aspirin (Aspirin Ec) 81 mg DAILY PO 11/23/18 09:00 12/23/18 08:59 11/23/18 09:43 Docusate Sodium (Colace) 100 mg BID PO 11/22/18 21:00 12/22/18 20:59 11/23/18 09:43 Hydrochlorothiazide (Hydrochlorothiazide) 25 mg DAILY PO 11/23/18 09:00 11/23/18 12:19 DC 11/23/18 09:41 Levothyroxine Sodium (Synthroid) 112 mcg ACB PO 11/23/18 06:30 12/23/18 06:29 11/23/18 06:25 Metoprolol Tartrate (Lopressor) 50 mg BID PO 11/22/18 21:00 12/22/18 20:59 11/23/18 09:43 Tramadol HCl (Ultram) 100 mg Q8 PO 11/22/18 22:00 12/22/18 21:59 11/23/18 09:48 Zolpidem Tartrate (Ambien) 5 mg HS PO 11/22/18 21:00 12/22/18 20:59 11/22/18 20:36 Metformin HCl (Glucophage) 1,000 mg BID PO 11/22/18 21:00 12/22/18 20:59 11/23/18 09:43 Dfsny-6-Dnfx Ethyl Esters (Lovaza) 1 gm DAILY24 PO 11/22/18 19:00 12/22/18 18:59 11/22/18 20:36 Potassium Chloride (Klor-Con 10) 20 meq BID PO 11/22/18 21:00 12/22/18 20:59 11/23/18 09:42 Rivaroxaban (Xarelto) 20 mg DAILY PO 11/23/18 09:00 12/23/18 08:59 11/23/18 09:41 Morphine Sulfate (Morphine Sulfate) 4 mg Q6HR PRN IV PAIN 4 - 6 11/22/18 19:00 12/22/18 18:59 11/23/18 10:51 Tramadol HCl (Ultram) 50 mg Q4HR PRN PO MILD PAIN 11/22/18 19:00 12/22/18 11:59 Tramadol HCl (Ultram) 100 mg Q4HR PRN PO SEVERE PAIN 11/22/18 19:00 12/22/18 11:59 Ketorolac Tromethamine (Toradol) 15 mg Q6H PRN IV PAIN 11/22/18 19:00 11/27/18 18:59 11/23/18 02:34 Famotidine (Pepcid) 20 mg BID PO 11/22/18 21:00 12/22/18 20:59 11/23/18 09:39 Course Sepsis Screening Results: Posi: POSITIVE Sepsis Qualifier/Stage: SEPSIS RISK Duration or Total Time Spent w: 2 hrs Vitals & review Data Vital Sign - Last 24 Hours 11/22/18 11/22/18 11/22/18 11/22/18 12:30 13:00 13:30 13:54 Temp 97.9 Pulse 89 91 91 91 Resp 18 18 18 18 B/P (MAP) 139/63 (88) 139/63 (88) 144/65 (91) Pulse Ox 97 99 97 99 O2 Delivery Room Air Room Air Room Air Room Air 11/22/18 11/22/18 11/22/18 11/22/18 14:36 19:25 23:26 23:29 Temp 98.0 98.0 Pulse 84 92 Resp 18 16 16 B/P (MAP) 111/49 (69) Pulse Ox 92 93 93 O2 Delivery Nasal Cannula Nasal Canula Nasal Cannula O2 Flow Rate 2.00 2.00 2.00 FiO2 28 11/23/18 11/23/18 11/23/18 11/23/18 00:19 00:24 04:45 07:54 Temp 97.8 97.5 97.9 97.8 97.5 97.9 Pulse 65 65 75 Resp 16 16 18 B/P (MAP) 97/59 (72) 92/46 (61) 113/54 (73) Pulse Ox 94 94 95 O2 Delivery Nasal Canula Nasal Cannula Nasal Canula Nasal Canula O2 Flow Rate 2.00 2.00 2.00 2.00 11/23/18 11/23/18 11/23/18 09:36 09:41 10:57 Pulse 75 Resp 18 B/P (MAP) 113/54 Pulse Ox 95 O2 Delivery Nasal Cannula Nasal Cannula O2 Flow Rate 2.00 2.00 FiO2 28 Intake and Output 0 11/22/18 11/22/18 11/23/18 15:00 23:00 07:00 Intake Total 1000 ml 300 ml Output Total 750 ml 425 ml Balance 250 ml -125 ml Laboratory Tests Test 11/22/18 08:34 11/22/18 10:00 11/23/18 05:19 White Blood Count 14.0 10^3/uL 7.2 10^3/uL Red Blood Count 4.29 10^6/uL 3.57 10^6/uL Hemoglobin 12.7 g/dL 10.5 g/dL Hematocrit 38.6 % 32.7 % Mean Corpuscular Volume 90.0 fL 91.6 fL Mean Corpuscular Hemoglobin 29.6 pg 29.4 pg Mean Corpuscular Hemoglobin Concent 32.9 g/dL 32.1 g/dL Red Cell Distribution Width 14.8 % 14.9 % Platelet Count 333 10^3/uL 254 10^3/uL Mean Platelet Volume 8.7 fL 9.0 fL Neutrophils (%) (Auto) 73.2 % 55.7 % Lymphocytes (%) (Auto) 17.4 % 27.5 % Monocytes (%) (Auto) 5.8 % 10.7 % Neutrophils # (Auto) 10.2 10^3/uL 4.0 10^3/uL Lymphocytes # (Auto) 2.4 10^3/uL 2.0 10^3/uL Monocytes # (Auto) 0.8 10^3/uL 0.8 10^3/uL Absolute Immature Granulocyte (auto 0.05 10^3 u/L 0.02 10^3 u/L Eosinophils % 2.9 % 5.7 % Basophils % 0.3 % 0.1 % Basophils # 0.0 10^3/uL 0.0 10^3/uL Eosinophil Count 0.4 10^3/uL 0.4 10^3/uL Prothrombin Time 10.1 SEC Prothrombin Time INR (Non-Therap) 1.0 Activated Partial Thromboplast Time 26.8 SEC D-Dimer 30.85 mg/L Sodium Level 138 mmol/L 137 mmol/L Potassium Level 3.7 mmol/L 4.5 mmol/L Chloride Level 96.0 mmol/L 101.0 mmol/L Carbon Dioxide Level 31.1 mmol/L 31.4 mmol/L Anion Gap 14.6 9.1 Blood Urea Nitrogen 17 mg/dL 15 mg/dL Creatinine 0.72 mg/dL 0.86 mg/dL Estimated GFR () 92.9 75.7 BUN/Creatinine Ratio 23.0 17.0 Glucose Level 103 mg/dL 82 mg/dL Calcium Level 10.4 mg/dL 9.4 mg/dL Total Bilirubin 0.4 mg/dL 0.2 mg/dL Aspartate Amino Transf (AST/SGOT) 19 U/L 14 U/L Alanine Aminotransferase (ALT/SGPT) 17 U/L 12 U/L Alkaline Phosphatase 76 U/L 61 U/L Total Creatine Kinase 44 U/L Troponin I < 0.02 ng/mL Pro-B-Type Natriuretic Peptide 95 pg/mL Total Protein 7.1 g/dL 5.9 g/dL Albumin 3.4 g/dL 2.6 g/dL Globulin 3.7 3.3 Percent Immature Gran (Cell Imm) 0.40 % 0.30 % Helicobacter pylori Screen POSITIVE Urine Collection Type VOID Urine Color YELLOW Urine Appearance CLOUDY Urine Bilirubin NEGATIVE MG/DL Urine Ketones 5 mg/dL Urine Specific [place] 1.010 Urine pH 9 Urine Protein NEGATIVE Urine Urobilinogen NORMAL Urine Nitrate POSITIVE Urine Leukocyte Esterase 500/uL 2+ Urine Blood 25 1+ Urine RBC 2-5 RBC/HPF Urine WBC TNTC WBC/HPF Urine Squamous Epithelial Cells MANY #/HPF Urine Bacteria MANY Urine Glucose NORMAL Current Medications Medications (Trade) Dose Ordered Sig/April PRN Reason Start Time Stop Time Status Last Admin Aspirin (Aspirin Ec) 81 mg DAILY 11/23/18 09:00 12/23/18 08:59 11/23/18 09:43 Ceftriaxone Sodium 1000 mg/ Sodium Chloride 100 ml @ 100 mls/hr Q24HRS 11/22/18 11:00 12/22/18 10:59 11/22/18 11:11 Docusate Sodium (Colace) 100 mg BID 11/22/18 21:00 12/22/18 20:59 11/23/18 09:43 Famotidine (Pepcid) 20 mg BID 11/22/18 21:00 12/22/18 20:59 11/23/18 09:39 Ketorolac Tromethamine (Toradol) 15 mg Q6H PRN PAIN 11/22/18 19:00 11/27/18 18:59 11/23/18 02:34 Levothyroxine Sodium (Synthroid) 112 mcg ACB 11/23/18 06:30 12/23/18 06:29 11/23/18 06:25 Metformin HCl (Glucophage) 1,000 mg BID 11/22/18 21:00 12/22/18 20:59 11/23/18 09:43 Metoprolol Tartrate (Lopressor) 50 mg BID 11/22/18 21:00 12/22/18 20:59 11/23/18 09:43 Morphine Sulfate (Morphine Sulfate) 4 mg Q6HR PRN PAIN 4 - 6 11/22/18 19:00 12/22/18 18:59 11/23/18 10:51 Vxpqu-8-Etcg Ethyl Esters (Lovaza) 1 gm DAILY24 11/22/18 19:00 12/22/18 18:59 11/22/18 20:36 Potassium Chloride (Klor-Con 10) 20 meq BID 11/22/18 21:00 12/22/18 20:59 11/23/18 09:42 Rivaroxaban (Xarelto) 20 mg DAILY 11/23/18 09:00 12/23/18 08:59 11/23/18 09:41 Tramadol HCl (Ultram) 50 mg Q4HR PRN MILD PAIN 11/22/18 19:00 12/22/18 11:59 Tramadol HCl (Ultram) 100 mg Q4HR PRN SEVERE PAIN 11/22/18 19:00 12/22/18 11:59 Tramadol HCl (Ultram) 100 mg Q8 11/22/18 22:00 12/22/18 21:59 11/23/18 09:48 Zolpidem Tartrate (Ambien) 5 mg HS 11/22/18 21:00 12/22/18 20:59 11/22/18 20:36 Sepsis Infection Criteria Pres: Suspected Infection LEVEL 1 SEPSIS INFECTION CRITE: ABX Therapy LEVEL 2-SIRS (LIST ALL THAT AP: None/Not assessed Cardiovascular Evidence: Not Assessed or None Hematologic Evidence: None/Not assessed Hepatic Evidence: None/Not assessed Metabolic Evidence: None/Not assessed Neurological Evidence: None/Not assessed Respiratory Evidence: Need for O2 to keep>90% Renal Evidence: None/Not assessed O2 Sat by Pulse Oximetry: 99 Oxygen Flow Rate: 2.00 Assessment/Plan Assessment/Plan Assessment/Plan 1. Right Periprosthetic Hip Fx: Ortho managing. Cont conservative treatment with pain control, PT. 2. HTN: cont BB, d/c HCTZ 3. DM: cont Metformin 4. CAD: cont ASA, no Statin for outpatient management. Will not add currently 5. Hypothyroidism: cont Synthroid 6. UTI: cont IV abx, pending urine cx. 7. PPx: Pepcid, Xarelto 8. Anemia: improved. Plan 1. Right Periprosthetic Hip Fx: Ortho managing. Cont conservative treatment with pain control, PT. 2. HTN: cont BB, d/c HCTZ 3. DM: cont Metformin 4. CAD: cont ASA, no Statin for outpatient management. Will not add currently 5. Hypothyroidism: cont Synthroid 6. UTI: cont IV abx, pending urine cx. 7. PPx: Pepcid, Xarelto 8. Anemia: improved. KATHI FRANZ MD November 25, 2018 09:38
[2018-11-25] MEDS ORDERED: AMOX500C PO (09:54)
--- NOTE | 2018-11-25 10:43 | NUR ---
REPORT REPORT CALLED IN TO [facility]. SPOKE WITH HUMBLE ALARCON
[2018-11-25] MEDS ORDERED: NS 100ML 100 ML IV ONE (11:04)
[2018-11-25] MEDS: ROCEPHIN 1,000 MG in NS 100ML 100 ML IV SCH (11:06)
--- NOTE | 2018-11-25 12:57 | NUR ---
DISCHARGE PT DISCHARGED FROM UNIT TO [facility] THIS TIME
[2018-11-25 12:58] VITALS: BP 130/53
--- NOTE | 2018-11-25 21:31 | DSH ---
DATE OF DISCHARGE: 11/25/2018 ADMITTING DIAGNOSIS: Nondisplaced greater trochanteric fracture of the right hip. OTHER DIAGNOSES: Include urinary tract infection, coronary artery disease, diabetes and hypertension. DISCHARGE DIAGNOSIS: Nondisplaced greater trochanteric fracture of the right hip. OPERATIVE PROCEDURE: None. CONSULTATIONS: Dr. Chisholm, the hospitalist. COMPLICATIONS: None. SUMMARY OF ADMISSION: The patient is an 88-year-old female, minimal ambulator, lives at the [facility], fell on 11/22/2018 and suffered a nondisplaced greater trochanteric fracture of the right hip periprosthetic. The patient was admitted for pain control and physical therapy. The patient has been on a diabetic diet throughout her hospitalization. Her pain had been controlled with tramadol and morphine. The patient has had daily physical therapy and occupational therapy. The patient will be discharged today on 11/25/2018. She can transfer to the bedside commode in a chair, 50% weightbearing on the right. She will be asked to continue with the tramadol for the pain. We will give her a prescription for amoxicillin for her urinary tract infection. She will be seen back in my office in 2 weeks. The patient is put on Xarelto. Donovan Carrillo MD DR: LIGIA/nena JOB# [id number]
== END 2018-11-25 12:45 | DRG 560 ==
LOC: EDBD 08:15 → ER 08:15 → MS 11:43 → EDPENDDISTM 11-25 12:58 → EDPENDDISDT 11-25 12:58
PROVIDERS: ADMIT Orthopaedic Surgery; ATTEND Orthopaedic Surgery
DX: M97.01XA Periprosthetic fracture around internal prosthetic right hip joint, initial encounter (principal); N39.0 Urinary tract infection, site not specified; I25.10 Atherosclerotic heart disease of native coronary artery without angina pectoris; I10 Essential (primary) hypertension; F03.90 Unspecified dementia, unspecified severity, without behavioral disturbance, psychotic disturbance, mood disturbance, and anxiety; E11.9 Type 2 diabetes mellitus without complications; E03.9 Hypothyroidism, unspecified; Z96.652 Presence of left artificial knee joint; M19.90 Unspecified osteoarthritis, unspecified site; D64.9 Anemia, unspecified; W01.0XXA Fall on same level from slipping, tripping and stumbling without subsequent striking against object, initial encounter; Y92.129 Unspecified place in nursing home as the place of occurrence of the external cause; Z87.891 Personal history of nicotine dependence; Z90.710 Acquired absence of both cervix and uterus; Z95.1 Presence of aortocoronary bypass graft; Z79.01 Long term (current) use of anticoagulants; Z79.82 Long term (current) use of aspirin; Z79.84 Long term (current) use of oral hypoglycemic drugs; Z79.899 Other long term (current) drug therapy; Z90.49 Acquired absence of other specified parts of digestive tract; Y93.89 Activity, other specified; Y99.8 Other external cause status
CPT/HCPCS: 36415; 70450; 73552; 73700; 80053; 81000; 82550; 82948; 83880; 84484; 85025; 85379; 85610; 85730; 86677; 87077; 87086; 87186; 93005; 97161; 99285; A4338; G0378; J0696; J1885; J2270; J2405; J3490; J7030; J7050; J7120; 73550-RT; 97110-GP; 97116-GP; 97530-GP

== ENCOUNTER → 2018-11-26 | Outpatient (CLI) | payer MEDICARE ==
[~2018-11-26] MED LIST: AMOX500C PO; ASPI-484 PO; DOCU100C28 PO; GABA300C10 PO; HYDR25TA9 PO; LEVO112T5 PO; METF10007 PO; METO25TA4 PO; METO50TA6 PO; OMEG1CAP6 PO; POTA20TA14 PO; RIVA20TA PO; TRAM50TA PO; VIT1TABL32 PO; ZOLP5TAB PO
[2018-11-26 17:43] LABS: BASOPHIL % 0.2 % (0.0-0.2); EOSINOPHIL # 0.3 10^3/uL (0.0-0.2); EOSINOPHIL % 3.9 % (0.0-5.0); HEMOGLOBIN 11.9 g/dL (12.0-15.0); LYMPHOCYTES # 1.9 10^3/uL (1.0-4.8); MEAN CELL HGB 29.5 pg (26-34); MEAN CELL HGB CONCENTRATION 32.9 g/dL (33-37); MEAN CORP VOLUME 89.6 fL (78-100); MEAN PLATELET VOLUME 9.7 fL (7.8-11.0); MONOCYTES # 0.9 10^3/uL (0.3-0.8); MONOCYTES % 9.8 % (5.0-12.0); NEUTROPHIL # 5.7 10^3/uL (1.8-7.7); NEUTROPHILS % 64.5 % (41.0-85.0); RED CELL DISTRIBUTION WIDTH 14.9 % (11.5-14.5); WHITE BLOOD CELL 8.8 10^3/uL (4.5-11.0)
[2018-11-26 18:10] LABS: CALCIUM 9.9 mg/dL (8.4-10.5)
== END | disposition home or self-care (01) ==
LOC: LAB 16:59
PROVIDERS: ATTEND Family Medicine
DX: N39.0 Urinary tract infection, site not specified (principal); I10 Essential (primary) hypertension
CPT/HCPCS: 80048; 85025

== ENCOUNTER 2019-01-18 04:53 | Emergency (ER) | payer MEDICARE ==
[~2019-01-18] VITALS: Ht 160 cm; Wt 63.5 kg
[2019-01-18 05:04] VITALS: BP 150/73
--- NOTE | 2019-01-18 05:25 | ER.PDOC ---
General Chief Complaint: Trauma Stated Complaint: Right hip injury Time seen by MD: 05:23 Source: EMS notes reviewed, long-term records Exam Limitations: clinical condition (dementia) History of Present Illness Initial Comments Right hip pain S/P fall Occurred: yesterday Where: long-term Severity: moderate Context: Unknown Loss of Consciousness: No Loss of Consciousness Associated Symptoms: headache, neck pain Allergies: Coded Allergies: No Known Allergies (Unverified , 11/22/18) MEDS Reported Medications Amoxicillin (AMOXICILLIN) 500 Mg Capsule, 1 CAP PO BID for 10 Days, #20 CAP 11/25/18 Metoprolol Tartrate 50MG (LOPRESSER 50MG) 50 Mg Tablet, 50 MG PO BID for HYPERTENSION, #60 TAB 11/22/18 Potassium Chloride (POTASSIUM CHLORIDE) 20 Meq Tab.er.prt, 1 TAB PO BID, #180 TAB 3 Refills 11/22/18 Metformin Hcl (METFORMIN HCL) 1,000 Mg Tablet, 1 TAB PO BID, #180 TAB 1 Refill 11/22/18 Docusate Sodium (DOCUSATE SODIUM) 100 Mg Capsule, 1 CAP PO BID, #14 CAP 11/22/18 Rivaroxaban (XARELTO) 20 Mg Tablet, 1 TAB PO DAILY, #90 TAB 3 Refills 11/22/18 Vit A,C & E/Lutein/Minerals (OCUVITE TABLET) 1 Each Tablet, 1 EACH PO DAILY24, TABLET 11/22/18 Levothyroxine Sodium (LEVOTHYROXINE SODIUM) 112 Mcg Tablet, 1 TAB PO DAILY, #90 TAB 3 Refills 11/22/18 Hydrochlorothiazide (HYDROCHLOROTHIAZIDE) 25 Mg Tablet, 1 TAB PO DAILY, #90 TAB 3 Refills 11/22/18 [place]-3 Fatty Acids/Fish Oil (FISH OIL 1,000 MG CAPSULE) 1 Each Capsule, 1 EACH PO DAILY24, CAPSULE 11/22/18 Aspirin (ASPIR 81) 81 Mg Tablet.dr, 1 TAB PO DAILY, #90 TAB 3 Refills 11/22/18 Zolpidem Tartrate (AMBIEN) 5 Mg Tablet, 1 TAB PO HS, #30 TAB 11/22/18 Tramadol Hcl (TRAMADOL HCL) 50 Mg Tablet, 100 MG PO Q8, TABLET 11/22/18 Past Medical History Medical History: diabetes, hypertension, thyroid disease Surgical History: coronary bypass surgery Social History Smoking: non-smoker Alcohol Use: none Drug Use: none Review of Systems Constitutional: no symptoms reported Respiratory: no symptoms reported Cardiovascular: no symptoms reported Gastrointestinal: no symptoms reported Genitourinary: no symptoms reported Musculoskeletal: see HPI All Other Systems: Reviewed and Negative Physical Exam General Appearance: No Apparent Distress, WD/WN Head: No Evidence of Injury Neck: Tenderness Cardiovascular/Respiratory: Regular Rate, Rhythm, No M/R/G, Normal Peripheral Pulses, No JVD, Normal Breath Sounds, No Respiratory Distress Gastrointestinal: Normal Bowel Sounds, No Organomegaly, No Pulsatile Mass, Non Tender, Soft Back: Normal Inspection, No CVA Tenderness, No Vertebral Tenderness Extremities: Pain With Movement (right hip) 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 (01/18/19 05:20) Xr Chest 1v (01/18/19 05:20) Ekg-Routine (01/18/19 05:20) Ct Head Wo Contrast (01/18/19 05:20) Ct Cervical Spine (01/18/19 05:20) Ct Pelvis Wo Iv Contrast (01/18/19 05:20) Vital Signs Date Time Temp Pulse Resp B/P (MAP) Pulse Ox O2 Delivery O2 Flow Rate FiO2 01/18/19 06:09 16 01/18/19 05:04 16 01/18/19 05:04 98.1 107 16 150/73 (98) 96 Nasal Canula 98.1 01/18/19 04:56 98.1 107 18 96 Nasal Canula 98.1 01/18/19 04:56 98.1 107 16 98.1 Laboratory Tests Test 01/18/19 05:34 White Blood Count 10.0 10^3/uL (4.5-11.0) Red Blood Count 4.56 10^6/uL (4.00-5.20) Hemoglobin 12.7 g/dL (12.0-15.0) Hematocrit 39.9 % (36.0-46.0) Mean Corpuscular Volume 87.5 fL (78-100) Mean Corpuscular Hemoglobin 27.9 pg (26-34) Mean Corpuscular Hemoglobin Concent 31.8 g/dL (33-37) L Red Cell Distribution Width 15.6 % (11.5-14.5) H Platelet Count 315 10^3/uL (150-400) Mean Platelet Volume 8.9 fL (7.8-11.0) Neutrophils (%) (Auto) 70.7 % (41.0-85.0) Lymphocytes (%) (Auto) 21.5 % (24.0-44.0) L Monocytes (%) (Auto) 5.2 % (5.0-12.0) Neutrophils # (Auto) 7.1 10^3/uL (1.8-7.7) Lymphocytes # (Auto) 2.1 10^3/uL (1.0-4.8) Monocytes # (Auto) 0.5 10^3/uL (0.3-0.8) Absolute Immature Granulocyte (auto 0.02 10^3 u/L (0-2) Immature Granulocytes % 0.20 % (0.00-0.50) Eosinophils % 2.3 % (0.0-5.0) Basophils % 0.1 % (0.0-0.2) Basophils # 0.0 10^3/uL (0.0-0.1) Eosinophil Count 0.2 10^3/uL (0.0-0.2) Prothrombin Time 11.3 SEC (9.8-11.9) Prothrombin Time INR (Non-Therap) 1.1 PTT 30.4 SEC (24.67-30.72) Sodium Level 135 mmol/L (132-145) Potassium Level 3.3 mmol/L (3.6-5.2) L Chloride Level 100.0 mmol/L (96-109) Carbon Dioxide Level 29.9 mmol/L (20.0-32) Anion Gap 8.4 Blood Urea Nitrogen 14 mg/dL (7-18) Creatinine 0.68 mg/dL (0.59-1.40) Estimated GFR () 99.0 (>/=60) BUN/Creatinine Ratio 20.0 Glucose Level 169 mg/dL (70-110) H Calcium Level 10.0 mg/dL (8.4-10.5) Total Bilirubin 0.8 mg/dL (0.2-1.0) Aspartate Amino Transferase (AST) 12 U/L (0-35) Alanine Aminotransferase (ALT) 11 U/L (12-78) L Alkaline Phosphatase 118 U/L (50-136) Total Creatine Kinase 21 U/L (26-192) L Troponin I < 0.02 ng/mL (0.00-0.05) Total Protein 7.5 g/dL (6.4-8.2) Albumin 3.2 g/dL (3.4-5.0) L Globulin 4.[address] pelvis: Subacute fracture of the greater trochanter with callus formation 2. Right hip prosthesis has a normal appearance with no lucency about the surgical hardware to suggest loosening. Spoke to Dr. Carrillo and patient will follow up with him in his office on 01/21/19 at 1 pm EKG/XRAY/CT/US XRAY: chest (No active disease) CT Comments: Nothing acute on CT head and C spine Departure Time of Disposition: 06:44 Disposition: 01 HOME, SELF-CARE Impression: Primary Impression: Injury of hip, right Additional Impression: Multiple contusions Condition: Stable Referrals: CRISTOFER CRUZ (PCP) PRIMARY CARE PROVIDER Additional Instructions: Continue home medications F/U with Dr. Carrillo on 01/21/19 at 1pm Duration or Time Spent with Pa: 60 mins Problem Qualifiers Primary Impression: Injury of hip, right Encounter type: initial encounter Qualified Codes: S79.911A - Unspecified injury of right hip, initial encounter JOHN RICHARDSON MD Jan 18, 2019 05:25
--- NOTE | 2019-01-18 05:30 | PCM.EKG ---
[facility] Test Date: 2019-01-18 Test Time: 05:30:18 Pat Name: JOHANNE SALAZAR [facility]: [id number] Room: Gender: F Private Equity Associate: LALA : 1930 Requested By: JOHN RICHARDSON Order Number: [id number] Reading MD: John RICHARDSON Measurements Intervals [place] Rate: 101 P: 64 CO: 172 QRS: -75 QRSD: 90 T: 74 QT: 374 QTc: 484 Interpretive Statements Sinus tachycardia Left axis deviation Abnormal ECG Compared to ECG 11/22/2018 09:19:16 Sinus rhythm no longer present Electronically Signed On 01-18-2019 6:46:30 CDT by John RICHARDSON Please click the below link to view image of tracing.
[2019-01-18 05:42] LABS: BASOPHIL % 0.1 % (0.0-0.2); EOSINOPHIL # 0.2 10^3/uL (0.0-0.2); EOSINOPHIL % 2.3 % (0.0-5.0); HEMOGLOBIN 12.7 g/dL (12.0-15.0); LYMPHOCYTES # 2.1 10^3/uL (1.0-4.8); LYMPHOCYTES % 21.5 % (24.0-44.0); MEAN CELL HGB 27.9 pg (26-34); MEAN CELL HGB CONCENTRATION 31.8 g/dL (33-37); MEAN CORP VOLUME 87.5 fL (78-100); MEAN PLATELET VOLUME 8.9 fL (7.8-11.0); MONOCYTES # 0.5 10^3/uL (0.3-0.8); MONOCYTES % 5.2 % (5.0-12.0); NEUTROPHIL # 7.1 10^3/uL (1.8-7.7); NEUTROPHILS % 70.7 % (41.0-85.0); RED CELL DISTRIBUTION WIDTH 15.6 % (11.5-14.5)
[2019-01-18 06:01] LABS: ALANINE AMINOTRANSFERASE(ML) 11 U/L (12-78); ALKALINE PHOSPHATASE 118 U/L (50-136); ASPARTATE AMINO TRANSFERASE 12 U/L (0-35); CARBON DIOXIDE 29.9 mmol/L (20.0-32); GLUCOSE 169 mg/dL (70-110)
--- NOTE | 2019-01-18 06:05 | DIREP ---
PROCEDURE: CT SPINE CERVICAL W/O COMPARISON:None. INDICATIONS:Pain S/P fall FINDINGS: ALIGNMENT:Normal. VERTEBRAE:Normal. PARASPINAL AREA:Normal. OTHER:Fusion of C3-4 with anterior plate and screws in fibular graft. Fusion of C5-C7. There is multilevel degenerative facet arthropathy. At C4-5, there is mild disc bulge with posterior osteophytosis. There is bilateral uncovertebral hypertrophy without significant foraminal narrowing CONCLUSION: 1. No fracture or subluxation. 2. Multilevel fusion. Dictated by: Vasquez Angeles Jr. on 01/18/2019 at 06:02 AM
--- NOTE | 2019-01-18 06:06 | DIREP ---
PROCEDURE:CT HEAD OR BRAIN W/O CONTRAST COMPARISON:[facility], CT, CT HEAD BRAIN W/O CONTRAST, 11/22/2018, 09:35 AM. INDICATIONS:Pain S/P fall TECHNIQUE:CT images were created without intravenous contrast. FINDINGS: VENTRICLES:There is moderate prominence of the ventricles and cortical sulci consistent with age related involutional changes. CEREBRUM:Small foci of diminished attenuation in the supratentorial white matter consistent with mild leukoaraiosis. Remote right occipital infarct CEREBELLUM:Negative. BRAINSTEM:Negative. BASAL CISTERNS:Negative. HEMORRHAGE:No MASS LESION:No ACUTE INFARCT:No SKULL:Normal. SINUSES:Normal. OTHER:None CONCLUSION: 1. Ventriculomegaly, consistent with atrophy. 2. Decreased density in the periventricular white matter is nonspecific but most likely related to chronic microvascular ischemic change. 3. Remote right occipital infarct 4. No traumatic abnormality Dictated by: Vasquez Angeles Jr. on 01/18/2019 at 06:04 AM
--- NOTE | 2019-01-18 06:22 | DIREP ---
PROCEDURE:CT PELVIS W/O COMPARISON:[facility], CT, CT LOWER EXTREMITY-RT W/O, 11/22/2018, 09:20 AM. [facility], CR, XRAY FEMUR 2 VWS-RT, 11/22/2018, 08:38 AM. INDICATIONS:Right hip pain TECHNIQUE:Axial images were created through the pelvis without intravenous contrast material. No oral contrast was administered. Sagittal and coronal reconstructions were performed from source images. FINDINGS: AORTA/VASCULAR:IVC filter. Aortoiliac atherosclerotic vascular calcium. RETROPERITONEUM:Normal. No mass or adenopathy. BOWEL/MESENTERY:Prominent amount of stool ABDOMINAL WALL:Normal. No mass or hernia. PELVIC ORGANS: The uterus is atrophic or surgically absent. BONES:Right hip prosthesis. There is a fracture through the greater trochanter with prominent callus formation . Degenerative change left hip . No acute fracture OTHER:Negative. CONCLUSION: 1. Subacute fracture of the greater trochanter with callus formation 2. Right hip prosthesis has a normal appearance with no lucency about the surgical hardware to suggest loosening. Dictated by: Vasquez Angeles Jr. on 01/18/2019 at 06:17 AM
--- NOTE | 2019-01-18 06:25 | DIREP ---
PROCEDURE:CHEST 1 VIEW COMPARISON:[facility], CT-CHEST W/O ABD W/O PEL W/O CONTRAST, 02/07/2018, 11:45 AM. [facility], CR, XRAY CHEST SINGLE VW, 07/16/2018, 02:41 PM. INDICATIONS:Weakness and fall FINDINGS: LUNGS/PLEURA:No significant pulmonary parenchymal abnormalities. No effusions. VASCULATURE:Normal. Unremarkable pulmonary vasculature. 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 MEDIASTINUM:Normal. No visible mass or adenopathy. BONES:Healed fracture of left clavicle and right humeral neck. Dorsal column stimulator wires OTHER:Negative. CONCLUSION: 1. No acute cardiopulmonary abnormality. Dictated by: Vasquez Angeles Jr. on 01/18/2019 at 06:22 AM
--- NOTE | 2019-01-18 06:46 | NUR ---
[facility] NOTIFIED PT IS READY TO BE PICKED UP.
[2019-01-18 08:32] VITALS: BP 110/73
== END 2019-01-18 07:54 | disposition home or self-care (01) ==
LOC: ER 04:53
DX: S70.01XA Contusion of right hip, initial encounter (principal); S10.93XA Contusion of unspecified part of neck, initial encounter; E07.9 Disorder of thyroid, unspecified; E11.9 Type 2 diabetes mellitus without complications; F03.90 Unspecified dementia, unspecified severity, without behavioral disturbance, psychotic disturbance, mood disturbance, and anxiety; I10 Essential (primary) hypertension; Z79.82 Long term (current) use of aspirin; Z79.899 Other long term (current) drug therapy; Z95.1 Presence of aortocoronary bypass graft; W19.XXXA Unspecified fall, initial encounter; Y93.89 Activity, other specified; Y92.128 Other place in nursing home as the place of occurrence of the external cause; Y99.8 Other external cause status
CPT/HCPCS: 36415; 70450; 71045; 72125; 72192; 80053; 82550; 84484; 85025; 85610; 85730; 93005; 99285